=== PATIENT | male | born 1950 | race Caucasian/White ===

== ENCOUNTER 2018-06-21 10:39 | Day surgery (SDC) | payer OTHER ==
[~2018-06-21] VITALS: Ht 190.5 cm; Wt 102.0 kg
[~2018-06-21 10:39] MED LIST: AMOCLA875 PO; ASPI325 PO; ASPI325EC PO; Aspirin325 MG PO; B Complex #11 EACH PO; BUDE6HFA; BUDE6HFA INH; CHOL10002 PO; Carbidopa-Levo1 EAC1 PO; Carbidopa-Levo1 EACH PO; Cyclobenzaprine5 MG PO; DONE10 PO; FORM12IH INH; FURO20 PO; GABA600 PO; HEARTBURN RELI150 M1 PO; HYDMOR2 PO; INSLI100I SC; INSULANPEN SC; LAMICTAL ODT200 MG PO; LAMO100 PO; LEVCAR2525 PO; LEVSOD75 PO; LIDO2TG30 TOP; LISI20 PO; Lisinopril2.5 MG PO; MECL25 PO; METCAR750 PO; METF500 PO; MORP15ER PO; MORP30ER PO; MULVITMIND PO; NITR.4SL; NITR.4SL SL; OXYC10TA19 PO; OXYC5 PO; PANT40 PO; PYRI100 PO; Prozac20 MG PO; TERA5 PO; TIOT18 INH; Terazosin HCl10 MG PO; VITAMIN D-32000 UNIT PO; VITAMIN D32000 UNIT PO; Zoloft100 MG PO
[2018-06-21] MEDS ORDERED: METO25ER (11:26)
[2018-06-21] MEDS ORDERED: FISH OIL + D31 EACH (11:26)
[2018-06-21] MEDS ORDERED: GLIP2.5ER (11:26)
--- NOTE | 2018-06-21 12:04 | NUR ---
06/21/18 1203 Felipe Meza UPDATED PT TO LET HIM AND SPOUSE AT [facility] KNOW THAT DR MELARA IS STILL WORKING ON THE PREVIOUS CASE. THEY BOTH STATE AN UNDERSTANDING. PT RESTING COMFORTABLY, CALL LIGHT WITHIN REACH.
--- NOTE | 2018-06-21 13:33 | NUR ---
06/21/18 1333 Felipe Meza PT STATES HE USES 3L O2 T/O THE DAY. CAME INTO PRE OP SOB FROM WALKING IN. STEP DOWN SATS ARE ON 2 L O2 VIA NC. PT STATES HE HAS OXYGEN TANK IN CAR. TOLD PT I WILL USE A WC TO TAKE HIM OUT AND ADVISED HIM TO SHELF DRIER OPERATOR TO HIS OWN O2 IF HE STARTS FEELING SOB. PT AND SPOUSE STATE AN UNDERSTANDING.
== END 2018-06-21 13:41 | disposition home or self-care (01) ==
LOC: ORSCSDS 10:39
PROVIDERS: Internal Medicine Gastroenterology
PROC: 0DBK8ZX Excision of Ascending Colon, Via Natural or Artificial Opening Endoscopic, Diagnostic (ICD-10-PCS; principal; 2018-06-21 12:00)
DX: Z12.11 Encounter for screening for malignant neoplasm of colon (principal); D12.2 Benign neoplasm of ascending colon; K64.8 Other hemorrhoids; G47.33 Obstructive sleep apnea (adult) (pediatric); G20 Parkinson's disease; F02.80 Dementia in other diseases classified elsewhere, unspecified severity, without behavioral disturbance, psychotic disturbance, mood disturbance, and anxiety; E11.42 Type 2 diabetes mellitus with diabetic polyneuropathy; I25.10 Atherosclerotic heart disease of native coronary artery without angina pectoris; J44.9 Chronic obstructive pulmonary disease, unspecified; F43.10 Post-traumatic stress disorder, unspecified; Z87.891 Personal history of nicotine dependence; Z79.82 Long term (current) use of aspirin; Z79.4 Long term (current) use of insulin; Z79.899 Other long term (current) drug therapy
CPT/HCPCS: 82947; 88305; J2704; J7120

== ENCOUNTER 2020-11-18 08:10 | Day surgery (SDC) | payer OTHER ==
[~2020-11-18] VITALS: Ht 185.4 cm; Wt 105.2 kg
[~2020-11-18 08:10] MED LIST changes: +ACET325 PO; +Aspir 8181 MG PO; +CARV3.125 PO; +EZET10 PO; +FAMO20 PO; +FISH OIL + D31 EACH; +GLIP2.5ER; +JARDIANCE25 MG PO; +LEVSOD100 PO; -LEVSOD75 PO; +LORA10ER PO; +MAGNESIUM OXID500 MG PO; +METO25ER; +MONT10T PO; +Methocarbamol500 MG PO; +OZEMPIC1 MG/0.72; +PREG100 PO; +PREG50 PO; +VITAMIN B-1100 MG PO; -VITAMIN D32000 UNIT PO; +Vitamin D1000 UNI1 PO
[2020-11-18] MEDS ORDERED: TAMS.4ER PO (09:47)
[2020-11-18 10:03] LABS: BASOPHILS ABSOLUTE AUTO 0.04 K/mm3 (0.00-0.23); BASOPHILS PERCENT AUTO 1 % (0-2); EOSINOPHILS ABSOLUTE AUTO 0.15 K/mm3 (0.00-0.68); EOSINOPHILS PERCENT AUTO 2 % (0-6); Hematocrit 43.4 % (37.0-53.0); Hemoglobin 14.9 g/dL (13.5-17.5); IMMATURE GRAN ABSOLUTE AUTO 0.02 K/mm3 (0.00-0.10); IMMATURE GRAN PERCENT AUTO 0 % (0-1); LYMPHOCYTES ABSOLUTE AUTO 2.04 K/mm3 (0.84-5.20); LYMPHOCYTES PERCENT AUTO 25 % (21-46); MONOCYTES PERCENT AUTO 6 % (4-13); Mean Corpuscular HGB 32.4 pg (26.0-34.0); Mean Corpuscular HGB Conc 34.3 g/dL (31.5-36.5); Mean Corpuscular Volume 94 fL (80-100); Mean Platelet Volume 11.3 fL (9.1-12.4); NEUTROPHILS ABSOLUTE AUTO 5.37 K/mm3 (1.96-9.15); NEUTROPHILS PERCENT AUTO 66 % (41-73); RDW Coefficient Variation 14.1 % (11.7-14.2); RDW Standard Deviation 48.4 fL (35.1-46.3); White Blood Cell Count 8.12 K/mm3 (4.00-11.30)
[2020-11-18 10:14] LABS: Platelet Count 45 K/mm3 (150-400)
[2020-11-18 10:18] LABS: International Normalized Ratio 1.03; Prothrombin Time Results 10.8 Sec (9.7-11.5)
[2020-11-18 10:21] LABS: SARS-Cov-2 (COVID-19) PCR, MMC NEGATIVE (NEGATIVE)
[2020-11-18 10:23] LABS: Anion Gap 5 mmol/L (6-16); Blood Urea Nitrogen 20 mg/dL (8-24); Bun/Creatinine Ratio 18.3 (12.0-20.0); CO2, Blood 29 mmol/L (21-32); Calcium, Blood 9.4 mg/dL (8.5-10.1); Chloride, Blood 105 mmol/L (98-108); Creatinine, Blood 1.09 mg/dL (0.60-1.20); Glomerular Filtration Rate >60 (60-); Glucose, Blood 141 mg/dL (70-99); Potassium, Blood 4.2 mmol/L (3.5-5.5); Sodium, Blood 139 mmol/L (136-145)
--- NOTE | 2020-11-18 11:52 | NUR ---
PATIENT RETURNED FROM THE [facility] VIA STRETCHER. RFA GROIN SITE WITH ANGIOSEAL CLOSURE NOTED. DRESSING CDI, SITE SOFT, NO HEMATOMA/NO BLEEDING. AT THE BEDSIDE. PATIENT PLACED ON THE MONITOR AND CONTINUE TO MONITOR ORDERED.
--- NOTE | 2020-11-18 12:16 | NUR ---
LUNCH TRAY SERVED. PATIENT TURNED SELF TO THE LEFT SIDE. RFA GROIN SITE UNCHANGED. CDI, NO HEMATOMA, NO BLEEDING. ASSISTING WITH MEAL.
--- NOTE | 2020-11-18 13:25 | NUR ---
1230 PATIENT TOOK OWN HOME MEDICATIONS FOR BACK PAIN. GIVEN BY . OK'D BY . RFA UNCHANGED.
--- NOTE | 2020-11-18 13:26 | NUR ---
HOB RAISED 15 DEGREES FOR PATIENT COMFORT.
--- NOTE | 2020-11-18 14:07 | NUR ---
PATIENT UP AND OOB TO THE RESTROOM. NO CHANGE IN THE RFA GROIN SITE. DRESSING CDI. NO HEMATOMA, NO BLEEDING. VVS. PATIENT DRESSED WITH ASSISTANCE FROM AND REVIEWED DISCHARGE INSTRUCTIONS. WILL RESUME ASPIRIN TOMORROW. PIV REMOVED AND ALL BELONGINGS GATHERED. DISCHARGED HOME VIA WHEELCHAIR TO PRIVATE VEHICLE WITH DRIVING.
== END 2020-11-18 14:17 | disposition home or self-care (01) ==
LOC: MHTC 08:10
PROVIDERS: Internal Medicine Cardiovascular Disease
DX: I35.0 Nonrheumatic aortic (valve) stenosis (principal); I25.10 Atherosclerotic heart disease of native coronary artery without angina pectoris; I25.810 Atherosclerosis of coronary artery bypass graft(s) without angina pectoris; I25.82 Chronic total occlusion of coronary artery; J44.9 Chronic obstructive pulmonary disease, unspecified; I12.9 Hypertensive chronic kidney disease with stage 1 through stage 4 chronic kidney disease, or unspecified chronic kidney disease; N18.32 Chronic kidney disease, stage 3b; E66.9 Obesity, unspecified; G20 Parkinson's disease; F02.80 Dementia in other diseases classified elsewhere, unspecified severity, without behavioral disturbance, psychotic disturbance, mood disturbance, and anxiety; E11.40 Type 2 diabetes mellitus with diabetic neuropathy, unspecified; E11.22 Type 2 diabetes mellitus with diabetic chronic kidney disease; G47.33 Obstructive sleep apnea (adult) (pediatric); E03.9 Hypothyroidism, unspecified; F32.9 Major depressive disorder, single episode, unspecified; E78.5 Hyperlipidemia, unspecified; Z79.4 Long term (current) use of insulin; Z99.81 Dependence on supplemental oxygen; Z88.5 Allergy status to narcotic agent; Z88.8 Allergy status to other drugs, medicaments and biological substances
CPT/HCPCS: 80048; 85025; 85610; 93005; 93010; 93455; 99152; 99153; C1760; C1769; C1894; J1644; J2250; J3010; J7030; J7050; Q9967; U0004

== ENCOUNTER 2022-07-05 00:21 | Day surgery (SDC) | payer OTHER ==
[~2022-07-05 00:21] MED LIST changes: +TAMS.4ER PO
[2022-07-05 08:14] VITALS: BP 125/68
[2022-07-05 08:29] VITALS: BP 148/61
[2022-07-05 09:15] VITALS: BP 131/65
[2022-07-05] MEDS ORDERED: DULERA 100 MCG/13 GM (10:05)
[2022-07-05] MEDS ORDERED: IMODIUM A-D2 M1 (10:05)
[2022-07-05] MEDS ORDERED: ALBU2.5V5 INH (10:56)
== END 2022-07-05 09:21 | disposition home or self-care (01) ==
LOC: ATC 00:21
DX: D69.6 Thrombocytopenia, unspecified (principal); I13.0 Hypertensive heart and chronic kidney disease with heart failure and stage 1 through stage 4 chronic kidney disease, or unspecified chronic kidney disease; E11.22 Type 2 diabetes mellitus with diabetic chronic kidney disease; N18.30 Chronic kidney disease, stage 3 unspecified; I50.9 Heart failure, unspecified; I25.10 Atherosclerotic heart disease of native coronary artery without angina pectoris; J44.9 Chronic obstructive pulmonary disease, unspecified; Z86.010 Personal history of colon polyps; Z79.82 Long term (current) use of aspirin; Z88.6 Allergy status to analgesic agent; Z88.5 Allergy status to narcotic agent; Z88.8 Allergy status to other drugs, medicaments and biological substances; Z87.891 Personal history of nicotine dependence
CPT/HCPCS: 36415; 86850; 86900; 86901; J7050; P9035

== ENCOUNTER 2022-07-05 09:41 | Day surgery (SDC) | payer OTHER ==
[~2022-07-05] VITALS: Ht 185.4 cm; Wt 101.8 kg
[2022-07-05] MEDS ORDERED: DULERA 100 MCG/13 GM (10:05)
[2022-07-05] MEDS ORDERED: IMODIUM A-D2 M1 (10:05)
--- NOTE | 2022-07-05 10:42 | NUR ---
07/05/22 1042 Jelena Willard PT ARRIVED WITH HEPLOCK IN LEFT FOREARM, PT RECEIVED PLATELETS THIS MORNING.
[2022-07-05] MEDS ORDERED: ALBU2.5V5 INH (10:56)
[2022-07-05 12:01] VITALS: BP 103/68
== END 2022-07-05 11:43 | disposition home or self-care (01) ==
LOC: ORSCSDS 09:41
PROVIDERS: Internal Medicine Gastroenterology
PROC: 0DBK8ZX Excision of Ascending Colon, Via Natural or Artificial Opening Endoscopic, Diagnostic (ICD-10-PCS; principal; 2022-07-05 11:00)
PROC: 0DBL8ZX Excision of Transverse Colon, Via Natural or Artificial Opening Endoscopic, Diagnostic (ICD-10-PCS; principal; 2022-07-05 11:00)
PROC: 0DJ08ZZ Inspection of Upper Intestinal Tract, Via Natural or Artificial Opening Endoscopic (ICD-10-PCS; principal; 2022-07-05 11:00)
DX: R19.7 Diarrhea, unspecified (principal); Z86.010 Personal history of colon polyps; K21.9 Gastro-esophageal reflux disease without esophagitis; Z13.810 Encounter for screening for upper gastrointestinal disorder; K74.60 Unspecified cirrhosis of liver; D12.2 Benign neoplasm of ascending colon; D12.3 Benign neoplasm of transverse colon; K64.8 Other hemorrhoids; I25.10 Atherosclerotic heart disease of native coronary artery without angina pectoris; E11.40 Type 2 diabetes mellitus with diabetic neuropathy, unspecified; E78.5 Hyperlipidemia, unspecified; J44.9 Chronic obstructive pulmonary disease, unspecified; Z99.81 Dependence on supplemental oxygen; E11.22 Type 2 diabetes mellitus with diabetic chronic kidney disease; I12.9 Hypertensive chronic kidney disease with stage 1 through stage 4 chronic kidney disease, or unspecified chronic kidney disease; N18.9 Chronic kidney disease, unspecified; F43.10 Post-traumatic stress disorder, unspecified; G20 Parkinson's disease; N40.0 Benign prostatic hyperplasia without lower urinary tract symptoms; E03.9 Hypothyroidism, unspecified; E78.00 Pure hypercholesterolemia, unspecified; Z79.899 Other long term (current) drug therapy; Z79.82 Long term (current) use of aspirin; Z87.891 Personal history of nicotine dependence
CPT/HCPCS: 36415; 82947; 88305; J2704; J7120

== ENCOUNTER 2022-09-06 06:38 | Emergency (ER) | payer OTHER ==
[~2022-09-06] VITALS: Ht 144.8 cm; Wt 103.0 kg
[~2022-09-06 06:38] MED LIST changes: +ALBU2.5V5 INH; +DULERA 100 MCG/13 GM; +IMODIUM A-D2 M1
[2022-09-06 08:01] LABS: BASOPHILS ABSOLUTE AUTO 0.03 K/mm3 (0.00-0.23); BASOPHILS PERCENT AUTO 1 % (0-2); EOSINOPHILS ABSOLUTE AUTO 0.08 K/mm3 (0.00-0.68); EOSINOPHILS PERCENT AUTO 2 % (0-6); Hematocrit 37.6 % (37.0-53.0); Hemoglobin 12.2 g/dL (13.5-17.5); IMMATURE GRAN ABSOLUTE AUTO 0.01 K/mm3 (0.00-0.10); IMMATURE GRAN PERCENT AUTO 0 % (0-1); LYMPHOCYTES ABSOLUTE AUTO 0.98 K/mm3 (0.84-5.20); LYMPHOCYTES PERCENT AUTO 21 % (21-46); MONOCYTES PERCENT AUTO 6 % (4-13); Mean Corpuscular HGB 28.8 pg (26.0-34.0); Mean Corpuscular HGB Conc 32.4 g/dL (31.5-36.5); Mean Corpuscular Volume 89 fL (80-100); Mean Platelet Volume 11.4 fL (9.1-12.4); NEUTROPHILS ABSOLUTE AUTO 3.32 K/mm3 (1.96-9.15); NEUTROPHILS PERCENT AUTO 70 % (41-73); RDW Coefficient Variation 15.5 % (11.7-14.2); RDW Standard Deviation 50.4 fL (35.1-46.3); Red Blood Cell Count 4.24 M/mm3 (4.30-5.90); White Blood Cell Count 4.72 K/mm3 (4.00-11.30)
[2022-09-06 08:07] LABS: Platelet Count 43 K/mm3 (150-400)
[2022-09-06 09:04] VITALS: BP 137/84
== END 2022-09-06 09:04 | disposition home or self-care (01) ==
LOC: ER 06:38
PROVIDERS: Emergency Medicine
DX: S91.115A Laceration without foreign body of left lesser toe(s) without damage to nail, initial encounter (principal); J44.9 Chronic obstructive pulmonary disease, unspecified; E11.9 Type 2 diabetes mellitus without complications; G20 Parkinson's disease; Z88.8 Allergy status to other drugs, medicaments and biological substances; Z88.5 Allergy status to narcotic agent; Z88.6 Allergy status to analgesic agent; Z88.3 Allergy status to other anti-infective agents; Z88.4 Allergy status to anesthetic agent; Z79.82 Long term (current) use of aspirin; Z79.4 Long term (current) use of insulin; Z79.899 Other long term (current) drug therapy; Z87.891 Personal history of nicotine dependence; W26.8XXA Contact with other sharp object(s), not elsewhere classified, initial encounter
CPT/HCPCS: 85025

== ENCOUNTER 2024-09-26 23:16 | Inpatient (IN) | payer OTHER ==
[~2024-09-26] VITALS: Ht 182.9 cm; Wt 97.1 kg
[2024-09-26] MEDS ORDERED: Ipratropium/Albuterol SulF 2.5-0.5MG/3 ML Amp INH ONE (23:40)
[2024-09-26] MEDS ORDERED: Albuterol 2.5 MG/3 ML VIAL INH SCH (23:40)
[2024-09-26 23:50] LABS: BASOPHILS ABSOLUTE AUTO 0.02 K/mm3 (0.00-0.23); BASOPHILS PERCENT AUTO 0 % (0-2); EOSINOPHILS ABSOLUTE AUTO 0.03 K/mm3 (0.00-0.68); EOSINOPHILS PERCENT AUTO 0 % (0-6); Hematocrit 34.4 % (37.0-53.0); Hemoglobin 11.1 g/dL (13.5-17.5); IMMATURE GRAN ABSOLUTE AUTO 0.03 K/mm3 (0.00-0.10); IMMATURE GRAN PERCENT AUTO 0 % (0-1); LYMPHOCYTES ABSOLUTE AUTO 0.83 K/mm3 (0.84-5.20); LYMPHOCYTES PERCENT AUTO 11 % (21-46); MONOCYTES ABSOLUTE AUTO 0.47 K/mm3 (0.16-1.47); MONOCYTES PERCENT AUTO 6 % (4-13); Mean Corpuscular HGB Conc 32.3 g/dL (31.5-36.5); Mean Corpuscular Volume 96 fL (80-100); NEUTROPHILS ABSOLUTE AUTO 6.50 K/mm3 (1.96-9.15); NEUTROPHILS PERCENT AUTO 82 % (41-73); NRBC ABSOLUTE 0.00 K/mm3 (0.00-0.02); NRBC Auto 0.0 /100 WBC (0.0-0.2); Platelet Count 73 K/mm3 (150-400); RDW Coefficient Variation 14.6 % (11.7-14.2); RDW Standard Deviation 50.9 fL (35.1-46.3)
[2024-09-27 00:13] LABS: Magnesium, Blood 2.2 mg/dL (1.6-2.4)
[2024-09-27 00:14] LABS: Alanine Aminotransfer (ALT/SGP 23.0 U/L (12-78); Albumin, Blood 2.8 g/dL (3.4-5.0); Albumin/Globulin Ratio 0.6 (0.8-1.8); Anion Gap 9.0 mmol/L (3-11); Aspartate Aminotrans (AST/SGOT 36.0 U/L (12-37); Bilirubin, Total 1.4 mg/dL (0.1-1.0); Blood Urea Nitrogen 26.0 mg/dL (8-24); CO2, Blood 26.0 mmol/L (21-32); Calcium, Blood 9.0 mg/dL (8.5-10.1); Chloride, Blood 108.0 mmol/L (98-108); Creatinine, Blood 1.02 mg/dL (0.60-1.20); Globulin, Blood 4.5 g/dL (2.2-4.0); Glucose, Blood 178.0 mg/dL (70-99); Potassium, Blood 4.7 mmol/L (3.5-5.5); Sodium, Blood 138.0 mmol/L (136-145); Total Protein, Blood 7.3 g/dL (6.4-8.2)
[2024-09-27] MEDS ORDERED: CefTRIAXone Sodium 2,000 MG in NS 100 ML IV ONE (01:00)
[2024-09-27] MEDS ORDERED: Furosemide 10 MG / ML 2ML Vial IV ONE (01:15)
[2024-09-27] MEDS ORDERED: Albuterol 2.5 MG/3 ML VIAL INH PRN (02:10)
[2024-09-27] MEDS ORDERED: Ipratropium/Albuterol SulF 2.5-0.5MG/3 ML Amp INH SCH (02:10)
[2024-09-27 04:44] LABS: Influenza A, PCR NEGATIVE (NEGATIVE); Influenza B, PCR NEGATIVE (NEGATIVE); Resp Syncytial Virus, PCR NEGATIVE (NEGATIVE); SARS-Cov-2 (COVID-19) PCR, MMC NEGATIVE (NEGATIVE)
[2024-09-27 06:21] LABS: BASOPHILS ABSOLUTE AUTO 0.01 K/mm3 (0.00-0.23); BASOPHILS PERCENT AUTO 0 % (0-2); EOSINOPHILS ABSOLUTE AUTO 0.00 K/mm3 (0.00-0.68); EOSINOPHILS PERCENT AUTO 0 % (0-6); Hematocrit 32.6 % (37.0-53.0); Hemoglobin 10.5 g/dL (13.5-17.5); IMMATURE GRAN ABSOLUTE AUTO 0.02 K/mm3 (0.00-0.10); IMMATURE GRAN PERCENT AUTO 0 % (0-1); LYMPHOCYTES ABSOLUTE AUTO 0.41 K/mm3 (0.84-5.20); LYMPHOCYTES PERCENT AUTO 7 % (21-46); MONOCYTES ABSOLUTE AUTO 0.05 K/mm3 (0.16-1.47); MONOCYTES PERCENT AUTO 1 % (4-13); Mean Corpuscular HGB Conc 32.2 g/dL (31.5-36.5); Mean Corpuscular Volume 95 fL (80-100); NEUTROPHILS ABSOLUTE AUTO 5.26 K/mm3 (1.96-9.15); NEUTROPHILS PERCENT AUTO 92 % (41-73); NRBC ABSOLUTE 0.00 K/mm3 (0.00-0.02); NRBC Auto 0.0 /100 WBC (0.0-0.2); Platelet Count 59 K/mm3 (150-400); RDW Coefficient Variation 14.4 % (11.7-14.2); RDW Standard Deviation 49.6 fL (35.1-46.3)
[2024-09-27 06:36] LABS: Anion Gap 12.0 mmol/L (3-11); Blood Urea Nitrogen 30.0 mg/dL (8-24); CO2, Blood 24.0 mmol/L (21-32); Calcium, Blood 8.3 mg/dL (8.5-10.1); Chloride, Blood 104.0 mmol/L (98-108); Creatinine, Blood 1.08 mg/dL (0.60-1.20); Glucose, Blood 194.0 mg/dL (70-99); Potassium, Blood 4.7 mmol/L (3.5-5.5); Sodium, Blood 135.0 mmol/L (136-145)
[2024-09-27] MEDS ORDERED: Insulin Human Lispro 100 Units/ML 3ML Syringe SC SCH (07:30)
[2024-09-27] MEDS ORDERED: Enoxaparin 40 MG/0.4 ML SYR SC SCH (09:00)
[2024-09-27 10:41] LABS: pH Blood Venous 7.37 (7.34-7.37)
[2024-09-27 15:11] VITALS: BP 133/61
--- NOTE | 2024-09-27 17:56 | NUR ---
ARRIVAL TO PCU/SHIFT SUMMARY PT ARRIVED TO PCU AT APPROXIMATELY 1445. PT SLID OVER FROM ER GURNEY TO HOSPITAL BED BY 4 CLINICAL STAFF MEMBERS. PT A&Ox4, COMMUNCIATES NEEDS APPROPRIATELY, VERY TANACROSS AND FORGETFUL AT TIMES. ORIENTED TO CALL LGIHT/UNIT. PTs TO BRING IN GLASSES AND HEARING AIDS. PT ARRIVED ON 6L VIA NC, SpO2 85%, TITRATED O2 UP TO 12L VIA NC TO ACHIEVE SpO2 OF 90%, PT DENIED SOB. RT SWITCHED PT TO 10L VIA VENTI MASK WITH SpO2> 90%. PT CONTINENT OF URINE, USES URINAL IND IN BED, NO BM SINCE ARRIVAL. NO C/O PAIN. NO OTHER EVENTS, WILL REPORT TO ONCOMING RN.
[2024-09-27] MEDS ORDERED: Carvedilol12.5 MG PO (18:30)
[2024-09-27] MEDS ORDERED: Lisinopril2.5 MG PO (18:31)
[2024-09-27] MEDS ORDERED: JARDIANCE25 MG PO (18:31)
[2024-09-27] MEDS ORDERED: Isosorbide Mono30 MG PO (18:32)
[2024-09-27] MEDS ORDERED: LEVSOD100 PO (18:35)
[2024-09-27] MEDS ORDERED: ZOLOFT50 MG PO (18:41)
[2024-09-27] MEDS ORDERED: FEROSUL325 M1 PO (18:42)
[2024-09-27] MEDS ORDERED: THERA-D2000 UNIT PO (18:42)
[2024-09-27] MEDS ORDERED: PREG25 PO (18:43)
[2024-09-27] MEDS ORDERED: MULVITA PO (18:43)
[2024-09-27] MEDS ORDERED: FLUT1DIS2 INH (18:44)
[2024-09-27] MEDS ORDERED: LOPE2C PO (18:45)
[2024-09-27] MEDS ORDERED: PYRI100 PO (18:45)
[2024-09-27] MEDS ORDERED: FAMO20 PO (18:45)
[2024-09-27] MEDS ORDERED: Robaxin750 MG PO (18:46)
[2024-09-27] MEDS ORDERED: ANTIHEMOPHILIC FACTOR RECOMBINANT FC FUSION PROTEIN IV (18:47)
[2024-09-27] MEDS ORDERED: DULERA 100 MCG/13 GM INH (18:48)
[2024-09-27] MEDS ORDERED: EZET10 PO (18:49)
[2024-09-27] MEDS ORDERED: TAMS.4ER PO (18:50)
[2024-09-27] MEDS ORDERED: Aspir 8181 MG PO (18:50)
[2024-09-27] MEDS ORDERED: DONEPEZIL HCL10 MG PO (18:51)
[2024-09-27] MEDS ORDERED: STRIVERDI RESPIM4 G1 INH (18:52)
[2024-09-27] MEDS ORDERED: MONT10T PO (18:52)
[2024-09-27] MEDS ORDERED: INSULANI SC (18:53)
[2024-09-27] MEDS ORDERED: OZEMPIC1 MG/0.72 SC (18:54)
[2024-09-27] MEDS ORDERED: ALBU90OI INH (18:55)
[2024-09-27] MEDS ORDERED: SYSTANE GEL10 GM UD (18:56)
[2024-09-27] MEDS ORDERED: BUPRENORPHINE1 EAC7 TD (18:58)
[2024-09-27 20:03] VITALS: BP 117/78
[2024-09-28] VITALS (7 sets, daily range): BP systolic 132–155; BP diastolic 51–91
[2024-09-28] MEDS ORDERED: CefTRIAXone Sodium 1,000 MG in NS 100 ML IV SCH (01:00)
--- NOTE | 2024-09-28 05:28 | NUR ---
END OF SHIFT REPORT PT VSS BUT REQ O2 SUPPORT WITH 10-12 LITERS NASAL CANNULA AND CHANGED TO OZIMYZER MASK FOR SLEEP FOR DESATTING. RESP THERAPIST ASSISTED WITH CHANGING PT TO MASK FOR SLEEP. TYLENOL GIVEN TIMES 2 FOR NEUROPATHY AND BONE PAIN THAT IS GENERALIZED. AT BEDSIDE AND ABLE TO DISCUSS MEDICATIONS TAKEN W DR CHING. PT TURNED W PILLOWS OVERNIGHT AND 2 ROCEPHIN AND AZITHROMYCIN TRANSFUSED OVERNIGHT. SCDS IN PLACE. BED LOW AND LOCKED, CALL LITE IN REACH AND BED ALARM ON FOR SAFETY. PER , PT VERY UNSTEADY ON FEET AND WALKS W WALKER FOR SHORT DISTANCES ONLY AT HOME AND ALSO HAS A WHEELCHAIR W PT NEUROPATHY
[2024-09-28 08:59] LABS: Anion Gap 10.0 mmol/L (3-11); Blood Urea Nitrogen 46.0 mg/dL (8-24); CO2, Blood 24.0 mmol/L (21-32); Calcium, Blood 8.4 mg/dL (8.5-10.1); Chloride, Blood 100.0 mmol/L (98-108); Creatinine, Blood 1.02 mg/dL (0.60-1.20); Glucose, Blood 227.0 mg/dL (70-99); Potassium, Blood 4.3 mmol/L (3.5-5.5); Sodium, Blood 130.0 mmol/L (136-145)
--- NOTE | 2024-09-28 09:15 | NUR ---
AM NOTE: PATIENT ALERT AND ORIENTED X3. FORGETGFUL WITH HISTORY OF DEMENTIA. AT BEDSIDE. BED AND CHAIR ALARMS IN PLACE. UP WITH ONE PERSON WITH FWW. MOVING ALL EXTREMITIES. COMPLAINS OF CHRONIC NEUROPATHY. Q2 TURNING AND NEEDED. UP TO RECLINER TOLERATED. ON 10L HIGH FLOW OR 10L OXY MASK. PATIENT MOUTH BREATHING AND AT TIMES NEEDS OXY MASK TO MAINTAIN SATURATIONS. LUNG SOUNDS COARSE. EVEN AND UNLABORED RESPIRATIONS AT REST. SOB ON EXCERTION. TELE SHOWING SR WITH HR 90-100'S. DENIES CHEST PAIN/PRESSURE/PALPITATIONS. NO EDEMA NOTED. SCD IN PLACE. IV SALINE LOCKED. PATIENT PULLED RIGHT FA IV. BOWEL TONES PRESENT. TOLERATING PO DIET. DENIES ABDOMINAL PAIN/NAUSEA. ATTENDS IN PLACE. INCONTINENT AT TIMES. ABLE TO USE URINAL WITH ASSISTANCE. DR. BRASWELL TO BEDSIDE THIS AM AND THIS RN DISCUSSED HOME MED REC BEING COMPLETED. PLAN FOR DDIMER AND IF ELEVATED CT PE STUDY. FLUTTER VALVE GIVEN TO PATIENT AND INSTRUCTED ON USE. SKIN PALE WITH SCATTERED SCABS. BLANCHABLE REDNESS TO COCCYX. PATIENT READING BOOK ON PERSONAL IPAD. AT BEDSIDE. ALARMS IN PLACE. CALL LIGHT IN REACH.
--- NOTE | 2024-09-28 10:26 | NUR ---
PATIENT DOWN TO CT PE STUDY AT THIS TIME ON 15L NONREBREATHER.
[2024-09-28 10:28] LABS: SARS-Cov-2 (COVID-19), BioFire Not Detected (NOT DETECT)
[2024-09-28 10:29] LABS: Influenza A/2009-H1 Not Detected (NOT DETECT)
[2024-09-28] MEDS ORDERED: Dextran/Hypromellose/Glycerin 15 DROP/ML BTL BOTHEYES PRN (13:50)
[2024-09-28] MEDS ORDERED: Formoterol/Mometasone MDI 5/100 mcg 13 GM INH SCH (14:05)
--- NOTE | 2024-09-28 17:28 | NUR ---
SHIFT SUMMARY: VITAL SIGNS STABLE. REMAINS AT BEDSIDE. ON 10 HIGH FLOW NASAL CANNULA SATING LOW-MID 90'S. LUNGS CONTINUE TO SOUND COARSE. INTERMIT COUGH. TELE SHOWING SR-ST WITH HR 80-100'S. DENIES CHEST PAIN/PRESSURE/PALPITATIONS. TOLERATING PO DIET. UP TO CHAIR FOR MEALS. ACHS BLOOD SUGAR CHECKS. INTERMIT RIGHT ELBOW PAIN, PATIENT STATES HE NEEDS SURGERY ON IT. MEDICATED PER EMAR WITH GOOD RELIEF. USING URINAL TO VOID. CALL LIGHT IN REACH. DENIES NEEDS AT THIS TIME.
[2024-09-28] MEDS ORDERED: Insulin Glargine-Yfgn 100 Unit/mL 3 ML SYR SC SCH (21:00)
[2024-09-28] MEDS ORDERED: Isosorbide Mononitrate 30 MG TABCR PO ONE (21:35)
--- NOTE | 2024-09-28 22:06 | NUR ---
CHEST PAIN *LATE ENTRY* APPROX 2119 PT REPORTS 7/10 CP TO R SIDE CHEST. DENIES DYSPNEA. VSS. TELE NSR & NO CHANGES W/HR 89. NOTED PT HAD NOT RECIEVED HIS KASHIF DOSE IMDUR THIS AM, STATES HE NORMALLY TAKES THIS DAILY TO PREVENT CP FROM OCCURRING. PT DOES STATE HE HAS NEEDED TO TAKE NITRO IN PAST FOR CP. CALLED DR CHING & HE ORDERED EKG, TROPONIN & 1/2 DOSE IMDUR (30MG) OT. APPROX [address] CHING EKG, INFORMED HIM PT CP ALREADY DCREASING TO 6/10 & PT APPEARS TO BE RESTING COMFORTABLY READING IN BED. HE STATED IF CP CONTINUES TO GIVE DOSE NITRO. TROPONIN PENDING. WILL REASSESS CP LEVEL.
[2024-09-29] VITALS (7 sets, daily range): BP systolic 90–137; BP diastolic 50–63
[2024-09-29] MEDS ORDERED: NS 250 ML IV PRN (01:20)
--- NOTE | 2024-09-29 03:09 | NUR ---
O2 DEMANDS/SPO2 PT HAS BEEN HAVING DIFFICULTY MAINTAINING SPO2 SINCE HS, WAS ORIGIONALLY CHANGED FROM 10L HFNC TO OXIMASK W/11L O2, WOULD MAINTAIN 88-92% FOR AWHILE & THEN ONCE SLEEPING START DESATING AGAIN TO 82-87%. WHEN PT WOKEN UP OR MASK ADJUSTED THEN SPO2 WOULD JUMP UP TO NORMAL RANGE, HOWEVER WOULD DESAT AGAIN WITHIN MINUTES. CALLED RT KYM Vivas & SHE SUGGESTED INCREASED OXIMASK TO MAX SETTING OF 15L & ASK MD ABOUT CPAP OR BIPAP. DISCUSSED W/DR CHING & HE ORDERED CPAP/BIPAP PROTOCAL. PT NOW ON CPAP 10 @50% FIO2 & SPO2 92-96%.
[2024-09-29 04:41] LABS: BASOPHILS ABSOLUTE AUTO 0.02 K/mm3 (0.00-0.23); BASOPHILS PERCENT AUTO 0 % (0-2); EOSINOPHILS ABSOLUTE AUTO 0.06 K/mm3 (0.00-0.68); EOSINOPHILS PERCENT AUTO 1 % (0-6); Hematocrit 33.1 % (37.0-53.0); Hemoglobin 10.5 g/dL (13.5-17.5); IMMATURE GRAN ABSOLUTE AUTO 0.03 K/mm3 (0.00-0.10); IMMATURE GRAN PERCENT AUTO 0 % (0-1); LYMPHOCYTES ABSOLUTE AUTO 1.12 K/mm3 (0.84-5.20); LYMPHOCYTES PERCENT AUTO 14 % (21-46); MONOCYTES ABSOLUTE AUTO 0.63 K/mm3 (0.16-1.47); MONOCYTES PERCENT AUTO 8 % (4-13); Mean Corpuscular HGB Conc 31.7 g/dL (31.5-36.5); Mean Corpuscular Volume 96 fL (80-100); NEUTROPHILS ABSOLUTE AUTO 6.33 K/mm3 (1.96-9.15); NEUTROPHILS PERCENT AUTO 77 % (41-73); NRBC ABSOLUTE 0.00 K/mm3 (0.00-0.02); NRBC Auto 0.0 /100 WBC (0.0-0.2); Platelet Count 67 K/mm3 (150-400); RDW Coefficient Variation 14.6 % (11.7-14.2); RDW Standard Deviation 50.7 fL (35.1-46.3)
[2024-09-29 05:12] LABS: Anion Gap 10.0 mmol/L (3-11); Blood Urea Nitrogen 43.0 mg/dL (8-24); CO2, Blood 25.0 mmol/L (21-32); Calcium, Blood 8.0 mg/dL (8.5-10.1); Chloride, Blood 103.0 mmol/L (98-108); Creatinine, Blood 1.09 mg/dL (0.60-1.20); Glucose, Blood 195.0 mg/dL (70-99); Potassium, Blood 3.9 mmol/L (3.5-5.5); Sodium, Blood 134.0 mmol/L (136-145)
--- NOTE | 2024-09-29 05:53 | NUR ---
SHIFT SUMMARY AOX3. FORGETFUL. PLEASENT & COOPERATIVE, FOLLOWS SIMPLE DIRECTIONS, MAY NEED THINGS REPEATED, VERY NOOKSACK. READ PREVIOUS NOTES REGARDING CP & O2 NEEDS. DENIES ANY CP THIS AM. SPO2 MAINTAINING >90% ON CPAP 10 @50% FIO2. BS DIM W/CRACKLES IN BASES. TELE NSR HR 90'S. & CALL LIGHT @BEDSIDE.
[2024-09-29] MEDS ORDERED: Isosorbide Mononitrate 60 MG TABCR PO SCH (09:00)
--- NOTE | 2024-09-29 10:29 | NUR ---
AM NOTE: PATIENT ALERT AND ORIENTED X3. FORGETFUL. HISTORY OF DEMENTIA. AT BEDSIDE. MOVING ALL EXTREMITIES. 1 PERSON ASSIST WITH FWW. TELE SHOWING SR WITH HR 80-90'S. DENIES CHEST PAIN/PRESSURE/PALPITATIONS. IV LASIX GIVEN PER EMAR. NO EDEMA NOTED. ON 7L HIGH FLOW NASAL CANNULA SATING 92% AND ABOVE AT THIS TIME. LUNG SOUNDS CLEAR WITH SOME COARSENESS HEARD IN LOWER LOBES. INCENTIVE SPIROMETER AND FLUTTER VALVE ENCOURAGED AND PATIENT INSTUCTED ON USE. AT BEDSIDE REMINDING PATIENT TO USE WELL. EVEN AND UNLABORED RESPIRATIONS AT REST. SOB WITH EXCERTION AND DESATTING TO MID 80'S. BOWEL TONES PRESENT. TOLERATING PO DIET. ACHS BLOOD SUGAR CHECKS. ATTENDS IN PLACE. USING URINAL WITH ASSISTANCE. DENIES ABDOMINAL PAIN/NAUSEA. SKIN PALE WITH SCATTERED SCABBING. BLANCHABLE REDNESS TO COCCYX. CALL LIGHT IN REACH. DENIES NEEDS AT THIS TIME. UP IN RECLINER AND REMAINS AT BEDSIDE.
--- NOTE | 2024-09-29 17:29 | NUR ---
TRANSFER: PATIENT REMAINS ALERT AND ORIENTED X3. REMAINS AT BEDSIDE. ON 7L HIGH FLOW NASAL CANNULA SATING 92-95%. CPAP AT BEDSIDE FOR NOC AND TAKEN ON TRANSFER. MEDICAL STATUS NO TELE. SBP 120'S. HR 80-90'S. DENIES CHEST PAIN/PRESSURE/PALPITATIONS. TOLERATING PO DIET. ACHS BLOOD SUGARS. BLOOD SUGARS IN 200'S THROUGHOUT THE DAY. BLOOD SUGAR 313 PRIOR TO DINNER, PATIENT HAD EATEN 7 PACKETS OF CRACKERS WITHOUT THIS RN'S APPROVAL. MEDICATED PER EMAR FOR BLOOD SUGAR OF 313 WITH INSULIN. AT BEDSIDE AND HELPFUL WITH ALL CARES. PATIENT USING URINAL. UP IN RECLINER FOR ALL MEALS. SCD'S WORN THROUGHOUT THE DAY. CHART AND MEDICATIONS TAKEN WITH PATIENT ON TRANSFER.
--- NOTE | 2024-09-29 18:18 | NUR ---
TRANSFER NOTE: PT ARRIVED TO ROOM 328 FROM U 4 AT 1737 VIA W/C. TRANSFERED INTO BED WITH A 1P ASSIST. CURRENTLY ON 7L O2 VIA HIGH FLOW NC. CONINTUOUS PLUSE OX CONNECTED AND READING O2 SATS 87%-91%. PT DENIES SHORTNESS OF BREATH. VSS UPON TRANSFER. PT IS LYING IN BED. BREATHING EQUAL AND NONLABORED. BED LOCKED AND IN THE LOWEST POSITION. WILL REPORT TO ONCOMING RN.
[2024-09-29] MEDS ORDERED: Insulin Glargine-Yfgn 100 Unit/mL 3 ML SYR SC SCH (21:00)
[2024-09-30 05:10] VITALS: BP 106/41
[2024-09-30 05:52] LABS: BASOPHILS ABSOLUTE AUTO 0.03 K/mm3 (0.00-0.23); BASOPHILS PERCENT AUTO 1 % (0-2); EOSINOPHILS ABSOLUTE AUTO 0.08 K/mm3 (0.00-0.68); EOSINOPHILS PERCENT AUTO 2 % (0-6); Hematocrit 28.8 % (37.0-53.0); Hemoglobin 9.4 g/dL (13.5-17.5); IMMATURE GRAN ABSOLUTE AUTO 0.01 K/mm3 (0.00-0.10); IMMATURE GRAN PERCENT AUTO 0 % (0-1); LYMPHOCYTES ABSOLUTE AUTO 0.91 K/mm3 (0.84-5.20); LYMPHOCYTES PERCENT AUTO 20 % (21-46); MONOCYTES ABSOLUTE AUTO 0.30 K/mm3 (0.16-1.47); MONOCYTES PERCENT AUTO 6 % (4-13); Mean Corpuscular HGB Conc 32.6 g/dL (31.5-36.5); Mean Corpuscular Volume 94 fL (80-100); NEUTROPHILS ABSOLUTE AUTO 3.34 K/mm3 (1.96-9.15); NEUTROPHILS PERCENT AUTO 72 % (41-73); NRBC ABSOLUTE 0.00 K/mm3 (0.00-0.02); NRBC Auto 0.0 /100 WBC (0.0-0.2); RDW Coefficient Variation 14.2 % (11.7-14.2); RDW Standard Deviation 48.9 fL (35.1-46.3)
--- NOTE | 2024-09-30 06:03 | NUR ---
Shift Summary Pt on 7L O2 NC at start of shift and cont. O2 monitor. SPO2 was around 90 and dropped as low as 75 when pt ambulated to and used the bathroom. in the room with pt overnight. Pt on BiPap with O2 bleedin t/o the night, SPO2 stable while sleeping with bipap above 90%. Pt slept heavily t/o the night, difficult to wake up to administer medications or take vitals. BP was soft during AM vitals and he has had soft BP since 09/29 at 1100. I am going to recheck his BP this AM.
[2024-09-30 06:09] LABS: Platelet Count 47 K/mm3 (150-400)
[2024-09-30 06:21] LABS: Alanine Aminotransfer (ALT/SGP 23.0 U/L (12-78); Albumin, Blood 2.4 g/dL (3.4-5.0); Albumin/Globulin Ratio 0.6 (0.8-1.8); Anion Gap 11.0 mmol/L (3-11); Aspartate Aminotrans (AST/SGOT 38.0 U/L (12-37); Bilirubin, Total 0.6 mg/dL (0.1-1.0); Blood Urea Nitrogen 52.0 mg/dL (8-24); CO2, Blood 26.0 mmol/L (21-32); Calcium, Blood 8.0 mg/dL (8.5-10.1); Chloride, Blood 102.0 mmol/L (98-108); Creatinine, Blood 1.43 mg/dL (0.60-1.20); Globulin, Blood 3.9 g/dL (2.2-4.0); Glucose, Blood 193.0 mg/dL (70-99); Potassium, Blood 3.6 mmol/L (3.5-5.5); Sodium, Blood 135.0 mmol/L (136-145); Total Protein, Blood 6.3 g/dL (6.4-8.2)
[2024-09-30 06:39] VITALS: BP 135/46
[2024-09-30 07:35] VITALS: BP 115/46
[2024-09-30] MEDS ORDERED: Ipratropium/Albuterol SulF 2.5-0.5MG/3 ML Amp INH SCH (15:10)
[2024-09-30 15:42] VITALS: BP 112/54
--- NOTE | 2024-09-30 17:48 | NUR ---
SHIFT SUMMARY PT A&OX3, VSS, ON 7L HIGH FLOW NC, TOLERATING PO, VOIDING, AND DENIED PAIN. PT CONT TO DESAT DOWN TO LOW 80s W/ ACTIVITY. CRITICAL PLT W/ AM LABS OF 47. NO OTHER ACUTE CHANGES. CALL LIGHT WITHIN REACH.
[2024-09-30 17:54] VITALS: BP 118/47
[2024-09-30 21:07] VITALS: BP 97/62
[2024-10-01 05:26] VITALS: BP 116/49
--- NOTE | 2024-10-01 06:18 | NUR ---
Shift Summary Pt remains on 7L via NC. He slept early in the shift with BiPAP but had some issues with his mask and switched to NC. No major desaturations, some breif desats down to 85. at the bedside assisting with care. Pt AOx3-4 with some confusion.
[2024-10-01 07:28] LABS: BASOPHILS ABSOLUTE AUTO 0.01 K/mm3 (0.00-0.23); BASOPHILS PERCENT AUTO 0 % (0-2); EOSINOPHILS ABSOLUTE AUTO 0.00 K/mm3 (0.00-0.68); EOSINOPHILS PERCENT AUTO 0 % (0-6); Hematocrit 28.8 % (37.0-53.0); Hemoglobin 9.2 g/dL (13.5-17.5); IMMATURE GRAN ABSOLUTE AUTO 0.01 K/mm3 (0.00-0.10); IMMATURE GRAN PERCENT AUTO 0 % (0-1); LYMPHOCYTES ABSOLUTE AUTO 0.32 K/mm3 (0.84-5.20); LYMPHOCYTES PERCENT AUTO 11 % (21-46); MONOCYTES ABSOLUTE AUTO 0.04 K/mm3 (0.16-1.47); MONOCYTES PERCENT AUTO 1 % (4-13); Mean Corpuscular HGB Conc 31.9 g/dL (31.5-36.5); Mean Corpuscular Volume 94 fL (80-100); NEUTROPHILS ABSOLUTE AUTO 2.58 K/mm3 (1.96-9.15); NEUTROPHILS PERCENT AUTO 87 % (41-73); NRBC ABSOLUTE 0.00 K/mm3 (0.00-0.02); NRBC Auto 0.0 /100 WBC (0.0-0.2); RDW Coefficient Variation 13.8 % (11.7-14.2); RDW Standard Deviation 47.9 fL (35.1-46.3)
[2024-10-01 07:35] VITALS: BP 134/53
[2024-10-01 07:39] LABS: Platelet Count 42 K/mm3 (150-400)
[2024-10-01 07:52] LABS: Alanine Aminotransfer (ALT/SGP 29.0 U/L (12-78); Albumin, Blood 2.7 g/dL (3.4-5.0); Albumin/Globulin Ratio 0.7 (0.8-1.8); Anion Gap 7.0 mmol/L (3-11); Aspartate Aminotrans (AST/SGOT 46.0 U/L (12-37); Bilirubin, Total 0.7 mg/dL (0.1-1.0); Blood Urea Nitrogen 48.0 mg/dL (8-24); CO2, Blood 26.0 mmol/L (21-32); Calcium, Blood 8.6 mg/dL (8.5-10.1); Chloride, Blood 103.0 mmol/L (98-108); Creatinine, Blood 1.22 mg/dL (0.60-1.20); Globulin, Blood 3.9 g/dL (2.2-4.0); Glucose, Blood 268.0 mg/dL (70-99); Potassium, Blood 4.3 mmol/L (3.5-5.5); Sodium, Blood 132.0 mmol/L (136-145); Total Protein, Blood 6.6 g/dL (6.4-8.2)
[2024-10-01 13:20] VITALS: BP 133/59
[2024-10-01 16:08] VITALS: BP 112/47
--- NOTE | 2024-10-01 19:24 | NUR ---
ASSUMED CARE OF PT 1545. PT PLEASANT COOP A/O. MOANS CONTINUOUSLY. STATES IS NEARLY DEAF AND DOES NOT REALIZE HIS HABIT AND THIS IS HIS BASELINE. CBG [address] FLANAGAN. ORDERS TO GIVE EVENING DOSE LONG ACTING NOW. GIVE KNEW S/S OF MEDIUM SCALE START NOW. THIS WILL BE [address] TO ADJUST JARDIANCE ALSO. AT BEDSIDE. NO OTHER CONCERNS NOTED. BED IN LOW POSITION, CALL LITE IN REACH, CALLS APPROP
[2024-10-01 20:11] VITALS: BP 113/51
[2024-10-02 05:15] VITALS: BP 140/52
[2024-10-02 05:51] LABS: Hematocrit 26.3 % (37.0-53.0); Hemoglobin 8.6 g/dL (13.5-17.5); Mean Corpuscular HGB Conc 32.7 g/dL (31.5-36.5); Mean Corpuscular Volume 94 fL (80-100); NRBC ABSOLUTE 0.00 K/mm3 (0.00-0.02); NRBC Auto 0.0 /100 WBC (0.0-0.2); RDW Coefficient Variation 13.7 % (11.7-14.2); RDW Standard Deviation 46.6 fL (35.1-46.3)
[2024-10-02 06:02] LABS: Platelet Count 46 K/mm3 (150-400)
[2024-10-02 06:18] LABS: Albumin, Blood 2.5 g/dL (3.4-5.0); Anion Gap 10 mmol/L (3-11); Blood Urea Nitrogen 44 mg/dL (8-24); CO2, Blood 24 mmol/L (21-32); Calcium, Blood 8.2 mg/dL (8.5-10.1); Chloride, Blood 104 mmol/L (98-108); Creatinine, Blood 1.10 mg/dL (0.60-1.20); Glucose, Blood 138 mg/dL (70-99); Magnesium, Blood 2.4 mg/dL (1.6-2.4); Phosphorus, Blood 3.7 mg/dL (2.5-4.9); Potassium, Blood 3.7 mmol/L (3.5-5.5); Sodium, Blood 134 mmol/L (136-145)
--- NOTE | 2024-10-02 06:47 | NUR ---
SHIFT SUMMARY: Pt is admitted for CHF and is a full code. Is alert and able to make needs known. ADLs have been 1p. Denies pain or discomfort when asked.. Iv to right wrist is patent with dressing that is CDI. on 8L of O2 to maintain SPO2 greater than 88%. Wore bipap through most of the night. PLT was 46 this AM labeled as critical low. Up from 42 yesterday. Informed ALT charge of lab was informed that due to trend up notification to MD was not needed this AM.
[2024-10-02 07:28] VITALS: BP 142/54
[2024-10-02] MEDS ORDERED: Insulin Human Lispro 100 Units/ML 3ML Syringe SC SCH (07:30)
[2024-10-02] MEDS ORDERED: Misc. Topical TOP SCH (09:00)
--- NOTE | 2024-10-02 11:37 | NUR ---
"Spiritual care Visit | Nurse referral Pt. is awake in bed and welcomes my visit. It is quickly determined that the Pt. is [place]. This senior report developer moved closer to him and facilitated a life review. Pt. verbalized his background and later service in the . Listen with emapthy and gratitude for the Pts. service. Pt. displayed evidence of being fully present and engaged. Pt. verbalized the desire to have this senior report developer pray for him, but not at bedside. This senior report developer has honored the Pts. request."
[2024-10-02 14:46] VITALS: BP 129/50
--- NOTE | 2024-10-02 18:37 | NUR ---
NO ACUTE CHANGES, ALERT AND OREINTED X3, ESSETIAL TREMORS AND OANING, /CAREGIVER AT BEDSIDE, HELPFUL WITH CARE, PATIENT PLEASANT AND COOPERATIVE TO CARE, MEDICATED FOR PAIN, PATINET TO POSSIBLE BE DISCHARGED HOME TOMORROW IF HE WEARS HIS BIPAP THROUGH OUT THE NIGHT, CALL LIGHT WITH IN REACH
[2024-10-02 20:04] VITALS: BP 133/69
[2024-10-03 05:31] VITALS: BP 131/51
--- NOTE | 2024-10-03 06:17 | NUR ---
SHIFT SUMMARY: Pt is admitted for CHF and is a full code. Is alert and able to make needs known. ADLs have been 1p. Denies pain or discomfort when asked. Iv to right wrist is patent with dressing that is CDI. on 6L of O2 to maintain SPO2 greater than 88%. Wore bipap through most of the night.
[2024-10-03 06:29] LABS: Hematocrit 27.8 % (37.0-53.0); Hemoglobin 9.1 g/dL (13.5-17.5); Mean Corpuscular HGB Conc 32.7 g/dL (31.5-36.5); Mean Corpuscular Volume 92 fL (80-100); NRBC ABSOLUTE 0.00 K/mm3 (0.00-0.02); NRBC Auto 0.0 /100 WBC (0.0-0.2); Platelet Count 52 K/mm3 (150-400); RDW Coefficient Variation 13.8 % (11.7-14.2); RDW Standard Deviation 46.7 fL (35.1-46.3)
[2024-10-03 06:48] LABS: Albumin, Blood 2.6 g/dL (3.4-5.0); Anion Gap 6 mmol/L (3-11); Blood Urea Nitrogen 38 mg/dL (8-24); CO2, Blood 26 mmol/L (21-32); Calcium, Blood 8.4 mg/dL (8.5-10.1); Chloride, Blood 106 mmol/L (98-108); Creatinine, Blood 0.63 mg/dL (0.60-1.20); Glucose, Blood 107 mg/dL (70-99); Magnesium, Blood 2.1 mg/dL (1.6-2.4); Phosphorus, Blood 3.7 mg/dL (2.5-4.9); Potassium, Blood 3.4 mmol/L (3.5-5.5); Sodium, Blood 135 mmol/L (136-145)
[2024-10-03 07:20] VITALS: BP 141/56
--- NOTE | 2024-10-03 10:34 | NUR ---
PATIENT WISHES TO BE DISCHARGED TODAY BUT BASED ON HOME O2 EVALUATION WITH RESPIRATORY THERAPY PATIENT ENCOURAGED TO STAY ONE MORE NIGHT FOR OBSERVATION AND PATIENT AGREES TO PLAN AFTER THIS RN TALKED WITH PATIENT AND SPOUSE. PATIENT HAS NO QUESTIONS OR CONCERNS. MD NOTIFIED. PLAN IS TO WEAN PATIENT BACK TO 6-7 LITERS VIA NASAL CANNULA PRIOR TO DISCHARGE. PATIENT DOWN TO 10 LPM AT 1030. CURRENT SATURATION 93%. WILL CONITNUE TO MONITOR LEVELS DURING THIS SHIFT.
--- NOTE | 2024-10-03 13:30 | NUR ---
PATIENT OXYGEN TURNED DOWN TO 8 LPM VIA NASAL CANNULA. RESTING IN BED IN THE HIGH 90'S.
--- NOTE | 2024-10-03 14:30 | NUR ---
PATIENT RESTING IN BED, OXYGEN AT 96%. TURNED RATE DOWN TO 6 LPM.
--- NOTE | 2024-10-03 15:32 | NUR ---
PATIENTS O2 ALARM WENT OFF. THIS RN CHECKED ON PATIENT AND FOUND HIM ON THE TOILET AND HIS OXYGEN LEVELS WERE 82%. PATIENT DENIED NEEDING ANY ASSISTANCE. DID ASK FOR HIS TABLET SO HE COULD CALL HIS SPOUSE. O2 TURNED BACK TO 15 LPM. PT ASSISTED BACK TO BED AND FOCUSED ON GETTING BREATHING BACK UNDER CONTROL. SPOUSE RETURNED TO ROOM. BED ALARM ON TO KEEP PATIENT FROM GETTING UP ALONE.
--- NOTE | 2024-10-03 18:07 | NUR ---
PATIENT ANTICIPATED BEING DISCHARGED TODAY BUT O2 HOME EVALUATION SHOWED PATIENT TO DROP IN OXYGEN LEVELS WHILE AMBULATING OUT OF BED. PATIENT AGREES TO STAYING OVER NIGHT FOR MORE OBSERVATION AND SECOND O2 TEST. PATIENT DROPPED INTO THE LOW 80'S WHEN IN THE BATHROOM. OXYGEN TURNED BACK TO 15LPM UNTIL PT WAS ABLE TO CATCH BREATH AND MAINTAIN O2 LEVELS. CURRENTLY BACK AT 6LPM. NO QUESTIONS OR CONCERNS. CALL LIGHT WITHIN REACH AND BED IN LOW POSITION. SPOUSE IS IN ROOM ASSISTING PATIENT WITH NEEDS WELL.
[2024-10-03 20:00] VITALS: BP 142/50
[2024-10-04 05:27] LABS: Hematocrit 31.0 % (37.0-53.0); Hemoglobin 10.0 g/dL (13.5-17.5); Mean Corpuscular HGB Conc 32.3 g/dL (31.5-36.5); Mean Corpuscular Volume 95 fL (80-100); NRBC ABSOLUTE 0.00 K/mm3 (0.00-0.02); NRBC Auto 0.0 /100 WBC (0.0-0.2); Platelet Count 55 K/mm3 (150-400); RDW Coefficient Variation 14.0 % (11.7-14.2); RDW Standard Deviation 48.9 fL (35.1-46.3)
[2024-10-04 05:33] VITALS: BP 152/61
[2024-10-04 05:47] LABS: Albumin, Blood 2.9 g/dL (3.4-5.0); Anion Gap 9 mmol/L (3-11); Blood Urea Nitrogen 32 mg/dL (8-24); CO2, Blood 25 mmol/L (21-32); Calcium, Blood 8.4 mg/dL (8.5-10.1); Chloride, Blood 107 mmol/L (98-108); Creatinine, Blood 1.05 mg/dL (0.60-1.20); Glucose, Blood 135 mg/dL (70-99); Magnesium, Blood 2.2 mg/dL (1.6-2.4); Phosphorus, Blood 4.0 mg/dL (2.5-4.9); Potassium, Blood 3.7 mmol/L (3.5-5.5); Sodium, Blood 137 mmol/L (136-145)
--- NOTE | 2024-10-04 06:28 | NUR ---
CONCRETE POURING SUPERVISOR SUMMARY VSS. ALERT AND ORIENTED X4. HARD OF HEARING STATED "YOU CAN YELL AT ME" BECAUSE HE WAS HARD OF HEARING HE SMILED. AT BEDSIDE TO ASSIST HIS NEEDS. HOB ELEVATED. ON O2 10L AND ON CPAP WITH 10-15L BLEED IN AT NIGHT. CONT PULSE OX IN THE 90'S. TOLERATING MEDS WELL WITH WATER. HAS BEEN RESTING QUIETLY WITH FEW INTERRUPTIONS. CALL LIGHT IN REACH, RAILS UP X 2 AND BED IN LOW POSITION FOR SAFETY. POSSIBLE DC TODAY. WILL CONTINUE TO MONITOR
[2024-10-04 07:55] VITALS: BP 133/51
[2024-10-04 15:19] VITALS: BP 130/65
--- NOTE | 2024-10-04 16:43 | NUR ---
MET WITH PT AND YESTERDAY AFTERNOON AND AGAIN TODAY. YESTERDAY WE DISCUSSED CODE STATUS, AND PT CHOSE NOT TO PARTICIPATE IN THE CONVERSATION. WAS TEARFUL, STATES SHE CAN'T THINK ABOUT THAT RIGHT NOW. HOWEVER, TODAY BOTH THE PATIENT AND WERE OPEN TO DISCUSS HOSPICE, AND PT VERBALIZES HE NEVER WANTS TO STAY IN A HOSPITAL AGAIN, AND IS VERY INTERESTED IN MANAGING SYMPTOMS AT HOME. HE V/U THAT HOSPICE IS NOT CURATIVE, AND ALLOWS NATURAL WHILE ALSO MANAGING SYMPTOMS. ALSO V/U. DR. HANSEN REPORTS HAVING A SIMILAR CONVERSATION THIS MORNING. CHOICE GIVEN, THEY REQUEST [facility].
--- NOTE | 2024-10-04 17:49 | NUR ---
SHIFT SUMMARY: A&OX4 THROUGHOUT SHIFT, BUT IS VERY ELEM THAT CAUSES SOME CONFUSION. SPOUSE REMAINS AT BEDSIDE TO ASSIST WITH PT CARE. PT ON 6L O2 VIA HIGH FLOW NC WITH O2 SATS >90%. WHEN PT TRANSFERS OUT OF BED, HE IS THEN REQUIRING 10-11L O2 DUE TO DESATURATIONS. PT WILL DECREASE TO 84-87%. CONTINUOUS PULSE OX REMAINS IN ROOM. NO IV ACCESS ORDER PLACED THIS AFTERNOON. OUT OF BED A COUPLE TIMES WITH ASSISTANCE. EATING WITH HOB AT THIS TIME. BED LOCKED AND IN THE LOWEST POSITION. MEDICATED PER EMAR. CALL LT WITHIN REACH.
[2024-10-04 19:39] VITALS: BP 106/56
[2024-10-04 23:55] VITALS: BP 118/75
[2024-10-05 04:27] VITALS: BP 126/55
--- NOTE | 2024-10-05 05:48 | NUR ---
SOFTWARE BUSINESS ANALYST SUMMARY PT A&OX4, VSS. AT BEDSIDE TO ASSIST PT W/ NEEDS. [place]. PT HAS BEEN ASLEEP FOR THE MAJORITY OF THE NIGHT. CHEST RISE/RESPIRATIONS NOTED. CPAP USE WHEN ASLEEP. 6L NC AT REST. 1PA W/ FWW & GB WHEN OUT OF BED. PLEASANT AND COOPERATIVE W/ CARE. USES CALL LIGHT APPROPRIATELY AND ABLE TO MAKE NEEDS KNOWN WELL. BED RAILS UP X 2, BED IN LOWEST POSITION, BED WHEELS LOCKED, PERSONAL BELONGINGS AND CALL LIGHT WITHIN REACH FOR SAFETY.
[2024-10-05 06:38] LABS: Anion Gap 10.0 mmol/L (3-11); Blood Urea Nitrogen 33.0 mg/dL (8-24); CO2, Blood 26.0 mmol/L (21-32); Calcium, Blood 8.6 mg/dL (8.5-10.1); Chloride, Blood 102.0 mmol/L (98-108); Creatinine, Blood 1.22 mg/dL (0.60-1.20); Glucose, Blood 127.0 mg/dL (70-99); Potassium, Blood 3.6 mmol/L (3.5-5.5); Sodium, Blood 134.0 mmol/L (136-145)
[2024-10-05 07:10] VITALS: BP 123/58
[2024-10-05 15:45] VITALS: BP 96/53
--- NOTE | 2024-10-05 16:30 | NUR ---
SHIFT SUMMARY: A&OX4 THROUGHOUT SHIFT. NO ACUTE CHANGES. PT IS ON 5L O2 VIA HIGH FLOW NC. O2 SATS >90%. CONTINUES TO DESAT WITH ACITIVITY REQUIRING ADDITIONAL O2 FOR RECOVERY. SPOUSE IN ROOM WITH ASSIST PT WITH CARE. BED LOCKED AND IN THE LOWEST POSITION. CALL LT WITHIN REACH.
--- NOTE | 2024-10-05 17:30 | NUR ---
PROVIDER CONTACT: PT CBG 419. DR HANSEN NOTIFIED.
[2024-10-05] MEDS ORDERED: Insulin Human Lispro 100 Units/ML 3ML Syringe SC ONE (18:00)
[2024-10-05 20:24] VITALS: BP 105/61
[2024-10-06 02:44] VITALS: BP 127/50
--- NOTE | 2024-10-06 05:55 | NUR ---
Shift Summary AOx3, pleasant. Patient drinks lots of water. Gave 500cc cup full of ice chips and another full of ice water. Before the second hour, patient had already finished his drinks and was asking for more. Patient is extremely [place] and doesn't read lips very well either. assisting with urinal and reporting to nursing staff the output. Tolerating CPAP throughout the night. Oxygen currently at 4L via nasal cannula w/ sats above 90%. Calling for needs appropriately. Prefers to lay on L side, but independent with bed mobility. Crackles auscultated to left lower base.
[2024-10-06 06:16] LABS: Anion Gap 9.0 mmol/L (3-11); Blood Urea Nitrogen 39.0 mg/dL (8-24); CO2, Blood 27.0 mmol/L (21-32); Calcium, Blood 8.8 mg/dL (8.5-10.1); Chloride, Blood 102.0 mmol/L (98-108); Creatinine, Blood 0.46 mg/dL (0.60-1.20); Glucose, Blood 150.0 mg/dL (70-99); Potassium, Blood 3.7 mmol/L (3.5-5.5); Sodium, Blood 134.0 mmol/L (136-145)
[2024-10-06 07:27] VITALS: BP 138/56
[2024-10-06] MEDS ORDERED: Insulin Human Lispro 100 Units/ML 3ML Syringe SC SCH (07:30)
[2024-10-06 15:32] VITALS: BP 111/64
--- NOTE | 2024-10-06 16:46 | NUR ---
PT AO AND ABLE TO MAKE NEEDS KNOWN. PT HAS HELPING WITH ALL CARE. PT RESTING IN BED MOST OF THE DAY. DENIES SHORT OF BREATH OR CHEST PAIN. NO DISTRESS NOTED WILL CONTINUE TO MONITOR.
[2024-10-06 19:42] VITALS: BP 112/56
[2024-10-07 02:10] VITALS: BP 103/55
--- NOTE | 2024-10-07 06:32 | NUR ---
SHIFT SUMMARY: Pt is admitted for CHF and is a full code. Is alert and able to make needs known. ADLs have been 1p. Denies pain or discomfort when asked.. Iv to right wrist is patent with dressing that is CDI. on 3L of O2 to maintain SPO2 greater than 88%. Was able to titrate o2 down to 2L which is baseline with spo2 maintaining 90-92.
[2024-10-07 07:12] VITALS: BP 127/64
[2024-10-07 07:59] LABS: BASOPHILS ABSOLUTE AUTO 0.03 K/mm3 (0.00-0.23); BASOPHILS PERCENT AUTO 0 % (0-2); EOSINOPHILS ABSOLUTE AUTO 0.03 K/mm3 (0.00-0.68); EOSINOPHILS PERCENT AUTO 0 % (0-6); Hematocrit 35.1 % (37.0-53.0); Hemoglobin 11.5 g/dL (13.5-17.5); IMMATURE GRAN ABSOLUTE AUTO 0.09 K/mm3 (0.00-0.10); IMMATURE GRAN PERCENT AUTO 1 % (0-1); LYMPHOCYTES ABSOLUTE AUTO 2.81 K/mm3 (0.84-5.20); LYMPHOCYTES PERCENT AUTO 17 % (21-46); MONOCYTES ABSOLUTE AUTO 0.85 K/mm3 (0.16-1.47); MONOCYTES PERCENT AUTO 5 % (4-13); Mean Corpuscular HGB Conc 32.8 g/dL (31.5-36.5); Mean Corpuscular Volume 91 fL (80-100); NEUTROPHILS ABSOLUTE AUTO 12.60 K/mm3 (1.96-9.15); NEUTROPHILS PERCENT AUTO 77 % (41-73); NRBC ABSOLUTE 0.00 K/mm3 (0.00-0.02); NRBC Auto 0.0 /100 WBC (0.0-0.2); Platelet Count 90 K/mm3 (150-400); RDW Coefficient Variation 14.2 % (11.7-14.2); RDW Standard Deviation 47.5 fL (35.1-46.3)
[2024-10-07 08:14] LABS: Anion Gap 8.0 mmol/L (3-11); Blood Urea Nitrogen 40.0 mg/dL (8-24); CO2, Blood 26.0 mmol/L (21-32); Calcium, Blood 9.0 mg/dL (8.5-10.1); Chloride, Blood 100.0 mmol/L (98-108); Creatinine, Blood 1.25 mg/dL (0.60-1.20); Glucose, Blood 129.0 mg/dL (70-99); Potassium, Blood 3.4 mmol/L (3.5-5.5); Sodium, Blood 131.0 mmol/L (136-145)
[2024-10-07] MEDS ORDERED: FURO20 PO (13:46)
[2024-10-07] MEDS ORDERED: SPIR25 PO (13:56)
--- NOTE | 2024-10-07 14:45 | NUR ---
PT DISCHARGED AT 1415 WITH ALL PAPERWORK REVIEWED AND EDUCATIONAL MATERIAL SENT WITH PT. PT'S PICKED UP O2 FOR HOME USE PER CASEMANAGER. TRANSPORTED OUT ALL PERSONAL BELONGINGS. NO DISTRESS NOTED AND PT ESCORTED OUT VIA WHEEL CHAIR TO N ENTRANCE WITH TO TRANSPORT.
--- NOTE | 2024-10-07 16:47 | NUR ---
PT DISCHARGED AT 1415 WITH SIFE TO TRANSPORT. [facility] TO [facility]. PT HAD PAPERWORK REVIEWED AND EDUCATIONAL MATERIAL SENT AND COLLECTED PERSONAL BELONINGS. PT WAS ESCORTED OUT TO N ENTRANCE VIA WHEELCHAIR NO DISTRESS NOTED.
== END 2024-10-07 14:40 | disposition home or self-care (01) | DRG 280 ==
LOC: ER 23:16 → ERHOLD 23:17 → ER 23:17 → ERHOLD 23:17 → PCU 09-27 13:35 → MEDS 09-27 13:35 → PCU 09-27 13:35 → ERHOLD 09-27 14:03 → PCU 09-27 14:40 → MEDS 09-29 17:37
PROVIDERS: Family Medicine; Hospitalist; Internal Medicine; Student in an Organized Health Care Education/Training Program; ADMIT Student in an Organized Health Care Education/Training Program
PROC: 3E03329 Introduction of Other Anti-infective into Peripheral Vein, Percutaneous Approach (ICD-10-PCS; principal; 2024-09-28)
PROC: 5A0935A Assistance with Respiratory Ventilation, Less than 24 Consecutive Hours, High Flow/Velocity Cannula (ICD-10-PCS; 2024-09-28)
PROC: 5A09557 Assistance with Respiratory Ventilation, Greater than 96 Consecutive Hours, Continuous Positive Airway Pressure (ICD-10-PCS; 2024-09-29)
DX: I11.0 Hypertensive heart disease with heart failure (principal); I50.33 Acute on chronic diastolic (congestive) heart failure; I21.A1 Myocardial infarction type 2; J96.21 Acute and chronic respiratory failure with hypoxia; J18.9 Pneumonia, unspecified organism; N17.9 Acute kidney failure, unspecified; J44.0 Chronic obstructive pulmonary disease with (acute) lower respiratory infection; J44.1 Chronic obstructive pulmonary disease with (acute) exacerbation; K76.6 Portal hypertension; K74.60 Unspecified cirrhosis of liver; Z68.30 Body mass index [BMI] 30.0-30.9, adult; G20.A1 Parkinson's disease without dyskinesia, without mention of fluctuations; E03.9 Hypothyroidism, unspecified; G89.29 Other chronic pain; F43.10 Post-traumatic stress disorder, unspecified; I25.10 Atherosclerotic heart disease of native coronary artery without angina pectoris; K74.69 Other cirrhosis of liver; E66.9 Obesity, unspecified; G47.33 Obstructive sleep apnea (adult) (pediatric); D69.6 Thrombocytopenia, unspecified; E11.9 Type 2 diabetes mellitus without complications; Z95.1 Presence of aortocoronary bypass graft; Z99.81 Dependence on supplemental oxygen; Z79.899 Other long term (current) drug therapy; Z88.5 Allergy status to narcotic agent; Z88.8 Allergy status to other drugs, medicaments and biological substances; F40.240 Claustrophobia; Z87.891 Personal history of nicotine dependence; Z79.4 Long term (current) use of insulin; Z79.890 Hormone replacement therapy; Z79.82 Long term (current) use of aspirin; Z98.1 Arthrodesis status; Z98.890 Other specified postprocedural states
CPT/HCPCS: 0202U; 36415; 71045; 71260; 80048; 80053; 80069; 82140; 82803; 82947; 83036; 83735; 83880; 84443; 84484; 85025; 85027; 85379; 87637; 93005; 93010; 93306; 94640; 94660; 94664; 94761; 94762; 96372-59; 96374; 96375; 96376; 99285-25; A9270; G0378; J0456; J0696; J1650; J1815; J1938; J2919; J7050; J7512; Q9967

== ENCOUNTER 2024-10-20 16:43 | Inpatient (IN) | payer OTHER ==
[~2024-10-20] VITALS: Ht 185.4 cm; Wt 97.5 kg
[~2024-10-20 16:43] MED LIST changes: +ALBU90OI INH; +ANTIHEMOPHILIC FACTOR RECOMBINANT FC FUSION PROTEIN IV; +BUPRENORPHINE1 EAC7 TD; +Carvedilol12.5 MG PO; +DONEPEZIL HCL10 MG PO; +DULERA 100 MCG/13 GM INH; +FEROSUL325 M1 PO; +FLUT1DIS2 INH; +INSULANI SC; +Isosorbide Mono30 MG PO; +LOPE2C PO; +MULVITA PO; +OZEMPIC1 MG/0.72 SC; +PREG25 PO; +Robaxin750 MG PO; +SPIR25 PO; +STRIVERDI RESPIM4 G1 INH; +SYSTANE GEL10 GM UD; +THERA-D2000 UNIT PO; +ZOLOFT50 MG PO
[2024-10-20] MEDS ORDERED: NS 1,000 ML IV ONE (17:04)
[2024-10-20] MEDS ORDERED: NS 1,000 ML IV SCH ×2 (17:05→18:20)
[2024-10-20 17:40] LABS: Alanine Aminotransfer (ALT/SGP 27.0 U/L (12-78); Albumin, Blood 2.8 g/dL (3.4-5.0); Albumin/Globulin Ratio 0.8 (0.8-1.8); Anion Gap 11.0 mmol/L (3-11); Aspartate Aminotrans (AST/SGOT 48.0 U/L (12-37); Bilirubin, Total 1.2 mg/dL (0.1-1.0); Blood Urea Nitrogen 20.0 mg/dL (8-24); CO2, Blood 23.0 mmol/L (21-32); Calcium, Blood 8.7 mg/dL (8.5-10.1); Chloride, Blood 106.0 mmol/L (98-108); Creatinine, Blood 1.08 mg/dL (0.60-1.20); Globulin, Blood 3.7 g/dL (2.2-4.0); Glucose, Blood 299.0 mg/dL (70-99); Magnesium, Blood 2.2 mg/dL (1.6-2.4); Phosphorus, Blood 4.0 mg/dL (2.5-4.9); Potassium, Blood 4.5 mmol/L (3.5-5.5); Sodium, Blood 135.0 mmol/L (136-145); Total Protein, Blood 6.5 g/dL (6.4-8.2)
[2024-10-20 18:01] LABS: BASOPHILS ABSOLUTE AUTO 0.01 K/mm3 (0.00-0.23); BASOPHILS PERCENT AUTO 0 % (0-2); EOSINOPHILS ABSOLUTE AUTO 0.04 K/mm3 (0.00-0.68); EOSINOPHILS PERCENT AUTO 1 % (0-6); Hematocrit 26.2 % (37.0-53.0); Hemoglobin 8.1 g/dL (13.5-17.5); IMMATURE GRAN ABSOLUTE AUTO 0.02 K/mm3 (0.00-0.10); IMMATURE GRAN PERCENT AUTO 0 % (0-1); LYMPHOCYTES ABSOLUTE AUTO 0.47 K/mm3 (0.84-5.20); LYMPHOCYTES PERCENT AUTO 9 % (21-46); MONOCYTES ABSOLUTE AUTO 0.27 K/mm3 (0.16-1.47); MONOCYTES PERCENT AUTO 5 % (4-13); Mean Corpuscular HGB Conc 30.9 g/dL (31.5-36.5); Mean Corpuscular Volume 100 fL (80-100); NEUTROPHILS ABSOLUTE AUTO 4.62 K/mm3 (1.96-9.15); NEUTROPHILS PERCENT AUTO 85 % (41-73); NRBC ABSOLUTE 0.00 K/mm3 (0.00-0.02); NRBC Auto 0.0 /100 WBC (0.0-0.2); RDW Coefficient Variation 16.7 % (11.7-14.2); RDW Standard Deviation 60.1 fL (35.1-46.3)
[2024-10-20 18:06] LABS: Platelet Count 37 K/mm3 (150-400)
[2024-10-20 23:28] LABS: Influenza A/2009-H1 Not Detected (NOT DETECT); SARS-Cov-2 (COVID-19), BioFire Not Detected (NOT DETECT)
[2024-10-21] VITALS (7 sets, daily range): BP systolic 103–130; BP diastolic 52–64
[2024-10-21 01:25] LABS: pH Blood Venous 7.40 (7.34-7.37)
[2024-10-21 01:29] LABS: BASOPHILS ABSOLUTE AUTO 0.01 K/mm3 (0.00-0.23); BASOPHILS PERCENT AUTO 0 % (0-2); EOSINOPHILS ABSOLUTE AUTO 0.02 K/mm3 (0.00-0.68); EOSINOPHILS PERCENT AUTO 0 % (0-6); Hematocrit 25.5 % (37.0-53.0); Hemoglobin 7.9 g/dL (13.5-17.5); IMMATURE GRAN ABSOLUTE AUTO 0.01 K/mm3 (0.00-0.10); IMMATURE GRAN PERCENT AUTO 0 % (0-1); LYMPHOCYTES ABSOLUTE AUTO 0.78 K/mm3 (0.84-5.20); LYMPHOCYTES PERCENT AUTO 17 % (21-46); MONOCYTES ABSOLUTE AUTO 0.23 K/mm3 (0.16-1.47); MONOCYTES PERCENT AUTO 5 % (4-13); Mean Corpuscular HGB Conc 31.0 g/dL (31.5-36.5); Mean Corpuscular Volume 99 fL (80-100); NEUTROPHILS ABSOLUTE AUTO 3.46 K/mm3 (1.96-9.15); NEUTROPHILS PERCENT AUTO 77 % (41-73); NRBC ABSOLUTE 0.00 K/mm3 (0.00-0.02); NRBC Auto 0.0 /100 WBC (0.0-0.2); RDW Coefficient Variation 16.4 % (11.7-14.2); RDW Standard Deviation 58.4 fL (35.1-46.3)
[2024-10-21 01:38] LABS: Platelet Count 36 K/mm3 (150-400)
[2024-10-21] MEDS ORDERED: Albuterol HFA200 ACT/6.7 GM INH INH PRN (01:40)
[2024-10-21] MEDS ORDERED: Formoterol/Mometasone MDI 5/100 mcg 13 GM INH SCH (01:45)
[2024-10-21] MEDS ORDERED: Albuterol 2.5 MG/3 ML VIAL INH SCH (01:50)
[2024-10-21 01:52] LABS: Alanine Aminotransfer (ALT/SGP 23.0 U/L (12-78); Albumin, Blood 2.5 g/dL (3.4-5.0); Albumin/Globulin Ratio 0.8 (0.8-1.8); Anion Gap 11.0 mmol/L (3-11); Aspartate Aminotrans (AST/SGOT 38.0 U/L (12-37); Bilirubin, Total 0.9 mg/dL (0.1-1.0); Blood Urea Nitrogen 21.0 mg/dL (8-24); CO2, Blood 25.0 mmol/L (21-32); Calcium, Blood 8.0 mg/dL (8.5-10.1); Chloride, Blood 107.0 mmol/L (98-108); Creatinine, Blood 1.06 mg/dL (0.60-1.20); Globulin, Blood 3.3 g/dL (2.2-4.0); Glucose, Blood 174.0 mg/dL (70-99); Potassium, Blood 4.6 mmol/L (3.5-5.5); Sodium, Blood 138.0 mmol/L (136-145); Total Protein, Blood 5.8 g/dL (6.4-8.2)
[2024-10-21] MEDS ORDERED: Insulin Human Lispro 100 Units/ML 3ML Syringe SC SCH (07:30)
[2024-10-21] MEDS ORDERED: Ipratropium/Albuterol SulF 2.5-0.5MG/3 ML Amp INH SCH (07:45)
[2024-10-21] MEDS ORDERED: CefTRIAXone Sodium 1,000 MG in NS 100 ML IV SCH (07:45)
[2024-10-21 08:37] LABS: Prothrombin Time Results 11.6 Sec (9.7-11.5)
[2024-10-21] MEDS ORDERED: Lactobacil 2-S.Thermo-Bifido 1 1 Cap PO SCH (09:00)
[2024-10-21] MEDS ORDERED: Cholecalciferol 1000 Unit Tablet (=25MCG) PO SCH (09:00)
[2024-10-21] MEDS ORDERED: Multivitamins 1 Tab PO SCH (09:00)
--- NOTE | 2024-10-21 10:04 | NUR ---
am note this rn assumed care at 0700. vital signs stable. tele sinus rhythm 80-90s. spo2 >90% on airvo 35l/min and fio2 71%. patient is alert and oriented x4. neuro is intact. perrla. patient is able to make needs known and uses call light appropriately. patient reports pain in neck and back rated at 7 and medicated per emar. upon reassessment patient pain level at a 6 and this rn provied patient with warm blankets. patient denies shortness of breath or chest pain/pressure. patient uses bedside urinal. patient lung sounds clear upper lobes and dim bilateral lower lobes. see shift assessment for further detials. short in to see patient at 0930 and discussed plan to do echo and iv abx and start iv lasix. patient agrees to this plan of care and at bedside for this visit. echo in at 0950.
--- NOTE | 2024-10-21 16:29 | NUR ---
UPDATE md cui in room at 1542 to discuss consult with patient. md cui went over the trop labs and that the elevated number is related to demand. see md cui note for further detials and recommendations
--- NOTE | 2024-10-21 17:44 | NUR ---
SHIFT SUMMARY patient vital signs remain stable. spo2 >90% on airvo 35l/min and fio2 71%. tele remains sinus rhythm 80s-90s. patient neuro remains intact. no acute changes throughout the shift.
[2024-10-22 02:00] LABS: Anion Gap 13.0 mmol/L (3-11); Blood Urea Nitrogen 31.0 mg/dL (8-24); CO2, Blood 23.0 mmol/L (21-32); Calcium, Blood 8.1 mg/dL (8.5-10.1); Chloride, Blood 101.0 mmol/L (98-108); Creatinine, Blood 1.14 mg/dL (0.60-1.20); Glucose, Blood 446.0 mg/dL (70-99); Magnesium, Blood 2.1 mg/dL (1.6-2.4); Potassium, Blood 4.7 mmol/L (3.5-5.5); Sodium, Blood 132.0 mmol/L (136-145)
[2024-10-22] MEDS ORDERED: Morphine Sulfate 4 MG/1 ML Injection IV ONE (02:54)
[2024-10-22 04:21] LABS: BASOPHILS ABSOLUTE AUTO 0.00 K/mm3 (0.00-0.23); BASOPHILS PERCENT AUTO 0 % (0-2); EOSINOPHILS ABSOLUTE AUTO 0.00 K/mm3 (0.00-0.68); EOSINOPHILS PERCENT AUTO 0 % (0-6); Hematocrit 26.7 % (37.0-53.0); Hemoglobin 8.4 g/dL (13.5-17.5); IMMATURE GRAN ABSOLUTE AUTO 0.02 K/mm3 (0.00-0.10); IMMATURE GRAN PERCENT AUTO 0 % (0-1); LYMPHOCYTES ABSOLUTE AUTO 0.28 K/mm3 (0.84-5.20); LYMPHOCYTES PERCENT AUTO 5 % (21-46); MONOCYTES ABSOLUTE AUTO 0.13 K/mm3 (0.16-1.47); MONOCYTES PERCENT AUTO 2 % (4-13); Mean Corpuscular HGB Conc 31.5 g/dL (31.5-36.5); Mean Corpuscular Volume 96 fL (80-100); NEUTROPHILS ABSOLUTE AUTO 5.27 K/mm3 (1.96-9.15); NEUTROPHILS PERCENT AUTO 92 % (41-73); NRBC ABSOLUTE 0.00 K/mm3 (0.00-0.02); NRBC Auto 0.0 /100 WBC (0.0-0.2); RDW Coefficient Variation 15.9 % (11.7-14.2); RDW Standard Deviation 54.8 fL (35.1-46.3)
[2024-10-22 04:29] LABS: Platelet Count 38 K/mm3 (150-400)
[2024-10-22 04:46] VITALS: BP 135/66
--- NOTE | 2024-10-22 06:46 | NUR ---
PT STABLE WITH VITAL SIGNS THROUGHOUT SHIFT, PT REMAINS ON AIRVO. PT STARTED TO C/O OF BACK PAIN THROUGH TO CHEST WITH RADIATION DOWN LEFT ARM AROUND 0015. PT WAS PREVIOUSLY ONLY C/O BACK/NECK PAIN. CALL PLACED TO DR. CHING REGARDING THIS. ORDERS FOR EKG AND NTG 0.4MG SL X1 GIVEN. EKG PERFORMED AND NTG GIVEN WITHOUT SIGNIFICANT RELIEF. NEW ORDERS FOR LABS PLACED BY PHYSICIAN. DR. CHING TO BEDSIDE TO EVALUATE PT. PT GIVEN MORPHINE 1MG X1 W/O SIGNIFICANT IMPROVEMENT WITH CHEST PAIN. APAP GIVEN AND PT PLACED ON HEATING PAD TO BACK. PT CONTINUES TO DENY IMPROVEMENT TO PAIN. PT HAS NOT SLEPT PER SINCE ADMIT. PT DOES REMAIN AOX4 BUT DOES APPEAR MORE SLOW THOUGHT. PT HAS HAD GOOD URINE OUT THROUGHOUT SHIFT.
[2024-10-22] MEDS ORDERED: OxyCODONE 10/Acetamin 325 TABLET PO PRN (11:05)
[2024-10-22] MEDS ORDERED: Isosorbide Mononitrate 60 MG TABCR PO SCH (12:00)
[2024-10-22 13:00] VITALS: BP 127/54
--- NOTE | 2024-10-22 16:19 | NUR ---
MET WITH PT AND AT BEDSIDE. THEY ARE BOTH INTERESTED IN HOSPICE UPON DISCHARGE BUT ARE HOPING THE PATIENT'S HEALTH CAN BE OPTIMIZED SOMEWHAT PRIOR TO DISCHARGE. THE PATIENT REQUESTS MORE INFORMATION ON CODE STATUS, HE REMAINS A FULL CODE AT THIS TIME.
[2024-10-22] MEDS ORDERED: Insulin Human Lispro 100 Units/ML 3ML Syringe SC SCH (16:30)
[2024-10-22 17:20] VITALS: BP 109/56
--- NOTE | 2024-10-22 18:06 | NUR ---
SHIFT SUMMARY: PT A&OX4. FOLLOWS COMMANDS AND MAKES NEEDS KNOWN TO STAFF. USED URINAL IN BED WITH ASSISTANCE. PT REMAINS SINUS ON THE MONITOR. VSS. MAP >65. REMAINS 35L 70% FIO2. PALLIATIVE SAW PT TODAY AND TALKED TO PT ABOUT GOING HOME ON HOSIPCE. SEE PALLIATIVE CARE NOTE. NO SIGNIFICANT EVENTS HAPPENED DURING THIS SHIFT. WILL CONTINUE TO CARE FOR PT TILL END OF SHIFT.
[2024-10-22 19:42] VITALS: BP 96/47
[2024-10-22 20:33] VITALS: BP 100/51
[2024-10-22] MEDS ORDERED: Insulin Glargine 100 Unit/ML 3 ML SYR SC SCH (21:00)
[2024-10-22 23:10] VITALS: BP 109/89
[2024-10-23 03:19] VITALS: BP 121/67
[2024-10-23 04:00] LABS: BASOPHILS ABSOLUTE AUTO 0.00 K/mm3 (0.00-0.23); BASOPHILS PERCENT AUTO 0 % (0-2); EOSINOPHILS ABSOLUTE AUTO 0.00 K/mm3 (0.00-0.68); EOSINOPHILS PERCENT AUTO 0 % (0-6); Hematocrit 24.4 % (37.0-53.0); Hemoglobin 7.7 g/dL (13.5-17.5); IMMATURE GRAN ABSOLUTE AUTO 0.03 K/mm3 (0.00-0.10); IMMATURE GRAN PERCENT AUTO 1 % (0-1); LYMPHOCYTES ABSOLUTE AUTO 0.37 K/mm3 (0.84-5.20); LYMPHOCYTES PERCENT AUTO 8 % (21-46); MONOCYTES ABSOLUTE AUTO 0.18 K/mm3 (0.16-1.47); MONOCYTES PERCENT AUTO 4 % (4-13); Mean Corpuscular HGB Conc 31.6 g/dL (31.5-36.5); Mean Corpuscular Volume 96 fL (80-100); NEUTROPHILS ABSOLUTE AUTO 4.25 K/mm3 (1.96-9.15); NEUTROPHILS PERCENT AUTO 88 % (41-73); NRBC ABSOLUTE 0.00 K/mm3 (0.00-0.02); NRBC Auto 0.0 /100 WBC (0.0-0.2); RDW Coefficient Variation 15.9 % (11.7-14.2); RDW Standard Deviation 56.0 fL (35.1-46.3)
[2024-10-23 04:20] LABS: Platelet Count 39 K/mm3 (150-400)
--- NOTE | 2024-10-23 04:25 | NUR ---
SHIFT SUMMARY. SHIFT HAS BEEN UNREMARKABLE. PT AOX4 ALTHOUGH FORGETFUL AT TIMES, PLEASANT, COOPERATIVE, ABLE TO MAKE NEEDS KNOWN. HAS BEEN ABLE TO SLEEP COMFORTABLY THROUGHOUT MOST OF SHIFT. PT REPORTED PAIN EARLY IN SHIFT THAT HAS BEEN ADEQUATELY MANAGED VIA EMAR. VITALS STABLE, BP SOMEWHAT SOFT EARLY IN SHIFT BUT HAS SINCE IMPROVED. CONTINUES TO RUN SINUS ON TELE. AIRVO REMAINS IN PLACE THROUGHOUT SHIFT, 35 L O2 W/ FIO2 FLUCTUATING BETWEEN 60-80%. PT HAS BEEN AT BEDSIDE THROUGHOUT SHIFT. Q2 HOUR REPOSITIONING. BED LOCKED IN LOWEST POSITION. CALL LIGHT LEFT WITHIN REACH. CONTINUING TO MONITOR.
[2024-10-23 04:44] LABS: Anion Gap 10.0 mmol/L (3-11); Blood Urea Nitrogen 42.0 mg/dL (8-24); CO2, Blood 27.0 mmol/L (21-32); Calcium, Blood 8.5 mg/dL (8.5-10.1); Chloride, Blood 102.0 mmol/L (98-108); Creatinine, Blood 1.26 mg/dL (0.60-1.20); Glucose, Blood 277.0 mg/dL (70-99); Potassium, Blood 5.3 mmol/L (3.5-5.5); Sodium, Blood 134.0 mmol/L (136-145)
[2024-10-23 07:36] VITALS: BP 116/45
--- NOTE | 2024-10-23 13:57 | NUR ---
PT AND HIS HAVE AGREED TO DISCHARGE HOME WITH HOSPICE. THEY HAVE CHOSEN [facility], AND PACKET BEING SENT TO THEM. PLANNED ADMIT DATE IS SUNDAY, 10/25.
[2024-10-23 15:59] VITALS: BP 111/42
--- NOTE | 2024-10-23 16:06 | NUR ---
SHIFT SUMMARY PATIENT A/OX4, NO OBVIOUS DISTRESS. INITIALLY PATIENT WAS ON AIRVO AND TRANSITIONED BRIEFLY TO HIGH FLOW NC @ 15L/MIN, BUT WAS NOT ABLE TO MAINTAIN SATS >98%. TRANSITIONED BACK TO AIRVO AND IS ON 35L/MIN AT 78% FIO2. PATIENT WAS PLEASANT AND DIDN'T HAVE MANY COMPLAINTS DURING SHIFT. REMAINED AT BEDSIDE AND ASSISTED HIM WITH MOVING POSITIONS IN BED AND VOIDING. PATIENT CODE STATUS CHANGED TO DNR AND WRIST BAND IN PLACE. PALLIATIVE CARE HAS BEEN WORKING ON GETTING HOSPICE SET UP. PATIENT HAS HOSPITAL BED AT HOME, BUT WILL NEED TANKS TO ACCOMMODATE OXYGEN NEEDS. CALL LIGHT REMAINS IN PLACE AND BED IN LOW POSITION. PATIENT TO TRANSFER TO [facility] FLOOR RM [id number] WHEN ROOM IS CLEAN.
--- NOTE | 2024-10-23 17:49 | NUR ---
REPORT GIVEN TO POLY DOTY ON MEDICAL FLOOR.
[2024-10-23 18:23] VITALS: BP 109/47
--- NOTE | 2024-10-23 18:30 | NUR ---
PT TRANSFERED TO ROOM 335 FROM U01. RT AT BEDSIDE TO SET UP AIRVO. AT BEDSIDE.
[2024-10-23 19:44] VITALS: BP 127/76
[2024-10-23] MEDS ORDERED: Insulin Glargine 100 Unit/ML 3 ML SYR SC SCH (21:00)
[2024-10-23 23:56] VITALS: BP 113/59
--- NOTE | 2024-10-24 03:31 | NUR ---
SHIFT SUMMARY: PT IS ON AIRVO AT 35 LITTERS. PT IS VERY PAIUTE OF [place] AND AOX4. PLAN IS TO DISCHARGE HOME ON HOSPICE. HAS BEEN AT BEDSIDE THROUGH OUT THE SHIFT. NO ACUTE CHANGES. CALL LIGHT IN REACH.
[2024-10-24 04:30] VITALS: BP 120/63
[2024-10-24 07:56] VITALS: BP 129/57
[2024-10-24 11:28] VITALS: BP 112/55
[2024-10-24] MEDS ORDERED: Insulin Human Lispro 100 Units/ML 3ML Syringe SC ONE ×2 (12:45→18:05)
[2024-10-24] MEDS ORDERED: Ondansetron 4 MG SoluTab MM PRN (12:50)
[2024-10-24] MEDS ORDERED: Atropine Sulfate 1% Opth Soln 2ML BTL SL PRN (12:50)
--- NOTE | 2024-10-24 19:48 | NUR ---
SHIFT SUMMARY PT IS A/OX3-4, FORGETFUL AT TIMES. HARD OF HEARING. PT MADE COMFORT STATUS THIS AFTERNOON. ON AIRVO, SATS >90% BLOOD SUGARS ELEVATED THIS SHIFT IN THE 300-400'S. PHYSICAN NOTIFIED. AT BEDISDE THROUGHOUT THIS SHIFT. PT IS PLEASANT AND COOPERATIVE WITH CARE AND CALLS APPROPRIATELY USING THE CALL LIGHT.
--- NOTE | 2024-10-24 20:34 | NUR ---
CALL FROM DAUGHTER, POLY, WHO STATES SHE LIVES IN [place] AND CANNOT COME VISIT HER FATHER BUT BELIEVES PATIENT'S HAS BEEN ABUSING/NEGLECTING THE PATIENT AND WANTS TO MAKE [facility] REPORT BUT "DOESN'T HAVE THE BALLS". ASKING NURSE TO "DO HER DUE DILLIGENCE AND STICK TO OATH YOU TOOK" AND REPORT TO [facility]. EDUCATED ON [facility]D REPORTING PROCESS AND RECOMMENDED SHE MAKE HER OWN REPORT IF SHE HAS CONCERNS AND THAT MESSAGE WOULD BE PASSED TO PROVIDER AND BEDSIDE NURSE.
[2024-10-24] MEDS ORDERED: Insulin Glargine 100 Unit/ML 3 ML SYR SC SCH (21:00)
[2024-10-25] MEDS ORDERED: Guaifenesin/Dextromethorphan Syrup 5 ML UDC PO PRN (00:30)
[2024-10-25 00:58] LABS: Source, Urine Clean Catch
[2024-10-25 01:02] LABS: Bilirubin, Urine Neg (Neg); Glucose Qualitative, Urine 4+ (Neg); Ketones, Urine Neg (Neg); Leukocyte Esterase, Urine 1+ (Neg); Protein, Urine Neg (Neg); Specific Gravity, Urine 1.015 (1.003-1.022); Urobilinogen, Urine NORM (Normal)
[2024-10-25 01:09] LABS: Color, Urine Yellow (P-Yellow)
[2024-10-25 01:11] LABS: Red Blood Cells, Urine 0-2 /hpf (0-2); White Blood Cells, Urine 0-2 /hpf (0-5); Yeast/Fungi Urine Mod /hpf
--- NOTE | 2024-10-25 06:53 | NUR ---
SHIFT SUMMARY ASSUMED CARE AT 0430. A/Ox4, SPO2 >88% ON 40L AIRVO. PT VOIDING MORE FREQUENTLY AND URGENTLY; UA SAMPLE WAS SENT TO LAB. PT REPORTS ROBITUSSIN EFFECTIVE FOR COUGH. PT DESATS TO 70s-80s IF UP TO EDGE OF BED WITH URINAL. SPOUSE ROOMING IN. SAFETY PRECAUTIONS IN PLACE, CALL LIGHT IN REACH.
[2024-10-25] MEDS ORDERED: Morphine Sulfate 20 MG/1ML 1 ML Oral Syringe SL PRN (11:40)
[2024-10-25] MEDS ORDERED: Budesonide 0.5 MG/2 ML RESP INH SCH (11:45)
[2024-10-25] MEDS ORDERED: Ipratropium/Albuterol SulF 2.5-0.5MG/3 ML Amp INH SCH (11:50)
--- NOTE | 2024-10-25 16:33 | NUR ---
PLAN FOR PT TO RETURN HOME TOMORROW WITH [facility]. PT NEEDS 02 AND NEBULIZER MACINE. [facility] INTAKE REPORTS THE HOSPICE NURSE WILL BRING COMFORT MEDICATIONS TO ADMISSION. PLAN FOR 1330 RIDE UNDERLINER, ADMISSION AT PT'S HOME AT 1430.
--- NOTE | 2024-10-25 18:37 | NUR ---
SHIFT SUMMARY PATIENT TRANSITIONED TO NASAL CANNULA AND 15 LITERS, MONITORS REMOVED. PATIENT COMFORTABLE WITH THIS PLAN, TOLERATING WELL. REPORTS ANXIETY, BUT NOT INCREASED SOB. LU PLACED WITHOUT COMPLICATION, DRAINING FREELY TO GRAVITY. ABLE TO MOVE WITH MIN ASSIST IN BED. A/O X4. AT BEDSIDE THROUGHOUT SHIFT. PLAN TO DC HOME WITH HOSPICE TOMORROW. CALL LIGHT IN REACH. ABLE TO MAKE NEEDS KNOWN. CARES ONGOING.
--- NOTE | 2024-10-26 04:13 | NUR ---
PT PRESENT OVERNIGHT. PATIENT DID NO REQUIRE AND PAIN MEDICATION HOWEVER HE DID REQUEST PAIN MEDICATION AROUND MIDNIGHT. NO ACUTE CHANGES, STABLE OVERNIGHT. ON 15L NC, BED IN LOWEST POSITION, CALL PISANO AND PERSONAL BELONGINGS WITHIN REACH.
[2024-10-26] MEDS ORDERED: BUDESONIDE0.5 MG/2 M INH (08:24)
[2024-10-26] MEDS ORDERED: ROBITUSSIN HON237 ML PO (08:26)
[2024-10-26] MEDS ORDERED: DOXY100 PO (08:27)
[2024-10-26] MEDS ORDERED: LORA1 PO (08:30)
[2024-10-26] MEDS ORDERED: MORP20L PO (08:34)
[2024-10-26] MEDS ORDERED: ONDA4ODT MM (08:35)
[2024-10-26] MEDS ORDERED: IPRAT-ALBUT 0.5-3 ML INH (08:41)
--- NOTE | 2024-10-26 08:57 | NUR ---
DISCHARGE MEDICATION PT US[facility]. [facility]. LEFT A MESSAGE FOR [facility] TO CONTACT [facility] TO VERIFY WHAT MEDCIATIONS [place] WILL COVER. PT IS RELUCTANT TO PAY OUT OF POCKET. CARE ONGOING.
--- NOTE | 2024-10-26 11:53 | NUR ---
DELAY OF DISCHARGE [facility] BROUGHT 1 OXYGEN CONCENTRATOR INSTEAD OF 2. BOOM TENDER RETURNING TO [facility] TO GET A SECOND UNIT. DISCHARGE PUSHED TO @1600. CARE ONGOING.
--- NOTE | 2024-10-26 14:14 | NUR ---
DISCHARGE HOSPICE. PT DISCHARGED VIA GURNEY WITH 15L OXYGEN. CONFIRMED BY FAMILY AT HOME THAT THE SECOND OXYGEN CONCENTRATOR HAS BEEN DELIVERED. CARE ONGOING.
== END 2024-10-26 14:15 | disposition hospice, home (50) | DRG 189 ==
LOC: ER 16:43 → PCU 16:44 → MEDS 10-21 14:28 → PCU 10-21 14:28 → MEDS 10-23 18:27
PROVIDERS: Emergency Medicine; Family Medicine; Internal Medicine; Student in an Organized Health Care Education/Training Program; ADMIT Student in an Organized Health Care Education/Training Program
PROC: 0T9B70Z Drainage of Bladder with Drainage Device, Via Natural or Artificial Opening (ICD-10-PCS; principal; 2024-10-21)
PROC: 5A0945A Assistance with Respiratory Ventilation, 24-96 Consecutive Hours, High Flow/Velocity Cannula (ICD-10-PCS; 2024-10-21)
PROC: 3E03329 Introduction of Other Anti-infective into Peripheral Vein, Percutaneous Approach (ICD-10-PCS; 2024-10-21)
DX: J96.21 Acute and chronic respiratory failure with hypoxia (principal); I21.A1 Myocardial infarction type 2; I50.32 Chronic diastolic (congestive) heart failure; K74.60 Unspecified cirrhosis of liver; I25.10 Atherosclerotic heart disease of native coronary artery without angina pectoris; Z66 Do not resuscitate; R30.0 Dysuria; J44.9 Chronic obstructive pulmonary disease, unspecified; E03.9 Hypothyroidism, unspecified; Z51.5 Encounter for palliative care; E11.9 Type 2 diabetes mellitus without complications; Z95.1 Presence of aortocoronary bypass graft; Z99.81 Dependence on supplemental oxygen; D73.1 Hypersplenism; J43.9 Emphysema, unspecified; Z87.891 Personal history of nicotine dependence; I35.0 Nonrheumatic aortic (valve) stenosis; Z95.2 Presence of prosthetic heart valve; Z88.5 Allergy status to narcotic agent; Z88.1 Allergy status to other antibiotic agents; Z88.8 Allergy status to other drugs, medicaments and biological substances; Z79.82 Long term (current) use of aspirin; Z79.899 Other long term (current) drug therapy; Z79.4 Long term (current) use of insulin; Z79.890 Hormone replacement therapy; Z86.718 Personal history of other venous thrombosis and embolism; G89.29 Other chronic pain; F43.10 Post-traumatic stress disorder, unspecified; Z98.890 Other specified postprocedural states; Z91.199 Patient's noncompliance with other medical treatment and regimen due to unspecified reason; D69.59 Other secondary thrombocytopenia
CPT/HCPCS: 0202U; 36415; 71045; 71260; 80048; 80053; 81001; 82803; 82947; 83735; 83880; 84100; 84145; 84484; 85025; 85610; 93005; 93010; 93308; 93321; 94640; 94664; 94762; 96374; 96375; 99285-25; A9270; G0378; J0696; J1815; J1938; J2270; J2919; J7030; Q9967